=== PATIENT | female | born 1965 ===

== ENCOUNTER 2016-08-12 14:00 | Emergency (ER) | payer OTHER ==
[2016-08-12 14:27] VITALS: TEMP 98.7; BMI 25.4
[2016-08-12] MEDS ORDERED: Sodium Chloride 0.9% 500 ML IV STA (14:49)
--- NOTE | 2016-08-12 15:11 | ED PDOC ---
Arrival/HPI - General Historian: Patient - General Chief Complaint: Eye Problem Time Seen by Provider: 08/12/16 14:23 - History of Present Illness Narrative History of Present Illness (Text): 08/12/16 15:12 51 yo F with h/o DM and HTN, presents with b/l eye irritation, redness and yellow d/c for the past few days. Denies trauma, FB sensation, changes in her vision, and eye pain. Also is c/o 1 month h/o intermittent nonradiating epigastric pain with no other GI symptoms and no exacerbating or alleviating factors, she has not addressed this symptoms yet with her pmd. Otherwise: (-) changes in appetite, (-) urinary symptoms, (-) vomiting, (-) diarrhea, (-) fever , (-) melena, (-) hematochezia. Has no history of prior abdominal surgery. (Bridger GUTIERREZ,Bertha Scott) Past Medical History - Provider Review Nursing Documentation Reviewed: Yes - Infectious Disease Hx of Infectious Diseases: None - Tetanus Immunization Tetanus Immunization: Unknown - Reproductive Menopause: Yes - Cardiac Hx Cardiac Disorders: Yes Hx Hypertension: Yes - Pulmonary Hx Respiratory Disorders: No - Neurological Hx Neurological Disorder: No - HEENT Hx HEENT Disorder: No - Renal Hx Renal Disorder: No - Endocrine/Metabolic Hx Endocrine Disorders: Yes Hx Diabetes Mellitus Type 2: Yes - Hematological/Oncological Hx Blood Disorders: No - Integumentary Hx Dermatological Disorder: No - Musculoskeletal/Rheumatological Hx Musculoskeletal Disorders: No - Gastrointestinal Hx Gastrointestinal Disorders: Yes Other/Comment: abdominal pain - Genitourinary/Gynecological Hx Genitourinary Disorders: No - Psychiatric Hx Psychophysiologic Disorder: No Hx Substance Use: No - Surgical History Hx Section: Yes (x3) Hx Tubal Ligation: Yes Other/Comment: notes from prior visit/triage: breast augmentation - Anesthesia Hx Anesthesia: Yes Hx Anesthesia Reactions: No Hx Malignant Hyperthermia: No - Suicidal Assessment Feels Threatened In Home Enviroment: No Family/Social History - Physician Review Nursing Documentation Reviewed: Yes Family/Social History: No Known Family HX Smoking Status: Never Smoked Hx Alcohol Use: No Hx Substance Use: No Hx Substance Use Treatment: No Allergies/Home Meds Allergies/Adverse Reactions: Allergies No Known Allergies Allergy (Verified 08/12/16 14:14) Home Medications: Home Meds Medication Instructions Recorded Confirmed Glyburide/Metformin HCl [Glyburide 1 tab PO BID 11/11/12 08/12/16 Micronized/Metformin HCl 5 mg-500 M] Enalapril Maleate [Vasotec] 20 mg PO DAILY 03/13/15 08/12/16 Review of Systems - Review of Systems Constitutional: Normal. absent: Fatigue, Weight Change, Fevers Eyes: Normal, Other (eye redness). absent: Vision Changes, Photophobia, Eye Pain ENT: Normal. absent: Hearing Changes, Tinnitus Respiratory: Normal, Cough. absent: SOB, Sputum Cardiovascular: Normal. absent: Chest Pain, Palpitations, Edema Gastrointestinal: Normal, Abdominal Pain. absent: Stool Changes, Appetite Changes Genitourinary Female: Normal. absent: Dysuria, Frequency, Hematuria Musculoskeletal: Normal. absent: Arthralgias, Back Pain, Neck Pain Skin: Normal. absent: Rash, Pruritis, Skin Lesions Physical Exam - Physical Exam Narrative Physical Exam (Text): 08/12/16 15:09 GENERAL APPEARANCE: Patient is awake, alert, oriented x 3, in no acute distress. HEAD: (-) facial swelling and erythema, (-) facial blisters. PUPILS: Pupils equal and reactive. EOM's: Intact. LIDS : (+) mild edema and erythema. CONJUNCTIVAE: (+) mildly injection. SKIN: Warm, dry; (-) cyanosis. EYES: (-) conjunctival pallor, (-) scleral icterus. ENMT: Mucous membranes moist. NECK: (-) tenderness, (-) stiffness, (-) lymphadenopathy. CHEST AND RESPIRATORY: (-) rales, (-) rhonchi, (-) wheezes; breath sounds equal bilaterally. HEART AND CARDIOVASCULAR: (-) irregularity; (-) murmur, (-) gallop. ABDOMEN AND GI: (-) distention. Bowel sounds active; (+) minimal epigastric tenderness, (-) guarding, (-) rebound, (-) palpable masses, (-) CVA tenderness. (-) Singh's. EXTREMITIES: (-) deformity, (-) edema, (+) distal pulses. NEURO AND PSYCH: Mental status as above; (-) focal findings. (Bridger GUTIERREZ, Bertha Scott) Vital Signs Temp Pulse Resp BP Pulse Ox 08/12/16 17:10 82 18 121/88 98 08/12/16 15:00 72 18 119/77 98 08/12/16 14:18 98.7 F 89 19 128/99 H 99 Medical Decision Making ED Course and Treatment: I was available for consultation during PA evaluation. The chart was reviewed by me, and I agree with disposition. The documented history was done by the physician audio visual production specialist. The documented physical exam was done by the physician audio visual production specialist. The documented procedures were done by the physician audio visual production specialist. (Nico Mendenhall) 08/12/16 15:08 51 yo F with h/o DM and HTN, presents with b/l eye irritation, redness and yellow d/c. Also is c/o 1 month h/o intermittent epigastric pain with no other GI symptoms. Based on exam, pt has conjunctivitis and will treat with antibiotic eye drops, to r/o any GB stones, likely dyspepsia. Plan: - Labs - NS IV - Pepcid - UA - Tobramycin eye drops On reevaluation, patient reports improvement of her abdominal pain. Denies any nausea or vomiting at this time. Labs reviewed, glucose is 360. Patient states that she took her oral DM medication today and does not know why her sugar is high. NS bolus ordered and Reg SC insulin 6 units given to the patient. UA results still pending. PA called to the pt's bedside, as per REINFORCING STEEL PLACER, the patient now wants to leave AMA. States that her car is parked outside and needs to move it hence she can not stay in the ER any longer and must leave. She is observed ambulating in the ER in no acute distress. Patient refuses further care, evaluation or treatment in the ER. Patient informed of the reasons for the following and planned treatment, which patient understands, however still refuses. Patient informed of the risk and benefits of treatment. Informed that the risk could include worsening of current conditions, undiagnosed conditions, disability or even . Patient understands the following risk and the benefits of treatment. Patient has the capacity to make decisions and still refuses treatment by RN, PA and ER MD. Patient encouraged to return to the ER at any time and to follow up with pmd. Patient advised to check her fingerstick after 3 hours when she gets home as she was medicated with SC insulin. Bottle of Tobramycin eyedrops provided to the patient and advised to continue to administer 2 gtts to b/l eyes QID x 7 days. Otherwise instructed to f/u with her pmd. (Bridger GUTIERREZ,Bertha Scott) - Lab Interpretations Lab Results: 08/12/16 15:40 08/12/16 15:40 Lab Results 08/12/16 17:15: Urine Color Yellow, Urine Appearance Clear, Urine pH 7.5, Ur Specific [place] 1.015, Urine Protein Negative, Urine Glucose (UA) >=1000, Urine Ketones Negative, Urine Blood Trace-lysed H, Urine Nitrate Negative, Urine Bilirubin Negative, Urine Urobilinogen 0.2, Ur Leukocyte Esterase Trace H , Urine RBC 0 - 2, Urine WBC 0 - 2, Ur Epithelial Cells 4 - 5, Urine Bacteria Trace 08/12/16 15:40: Sodium 138, Potassium 4.3, Chloride 101, Carbon Dioxide 30, Anion Gap 11, BUN 13, Creatinine 0.7, Est GFR ( Amer) > 60, Est GFR (Non- Af Amer) > 60, Random Glucose 360 H*, Calcium 9.4, Total Bilirubin 0.5, AST 18, ALT 24, Alkaline Phosphatase 107, Total Protein 7.2, Albumin 3.9, Globulin 3.3, Albumin/Globulin Ratio 1.2, Lipase 24 08/12/16 15:40: WBC 3.3 L D, RBC 4.00, Hgb 11.6 L, Hct 34.6 L, MCV 86.5, MCH 29.0, MCHC 33.5, RDW 13.1, Plt Count 120, MPV 10.2, Gran % 47.9 L, Lymph % (Auto ) 45.4 H, [place] % (Auto) 6.1 H, Eos % (Auto) 0.3 L, Baso % (Auto) 0.3, Gran # 1.57, Lymph # 1.5, [place] # 0.2, Eos # 0.0, Baso # 0.01 - Medication Orders Current Medication Orders: Sodium Chloride (Sodium Chloride 0.9%) 1,000 mls @ 1,000 mls/hr IV .Q1H DIEGO Last Admin: 08/12/16 15:30 Dose: Not Given Non-Admin Reason: Patient Refused Discontinued Medications Famotidine (Pepcid) 20 mg IVP STAT STA Stop: 08/12/16 14:50 Last Admin: 08/12/16 15:20 Dose: 20 mg Sodium Chloride (Sodium Chloride 0.9%) 500 mls @ 1,000 mls/hr IV .Q30M STA Stop: 08/12/16 15:18 Last Admin: 08/12/16 15:20 Dose: 1,000 mls/hr Insulin Human Regular (Humulin R) 6 units SC STAT STA Stop: 08/12/16 16:52 Last Admin: 08/12/16 17:30 Dose: 6 units Tobramycin Sulfate (Tobrex 0.3% Ophth Soln) 2 drop OU STAT STA Stop: 08/12/16 16:52 Last Admin: 08/12/16 17:30 Dose: 2 drop - PA / PROFESSIONAL NURSING TUTOR / Resident Statement / has reviewed & agrees with the documentation as recorded. Disposition/Present on Arrival - Present on Arrival Any Indicators Present on Arrival: No History of DVT/PE: No History of Uncontrolled Diabetes: No Urinary Catheter: No History of Decub. Ulcer: No History Surgical Site Infection Following: None - Disposition Have Diagnosis and Disposition been Completed?: Yes Disposition Time: 17:32 Patient Plan: Other (AMA) - Disposition Diagnosis: Conjunctivitis, Abdominal pain Disposition: AGAINST MEDICAL ADVICE Patient Problems: Current Active Problems Problem Status Onset Abdominal pain Acute Conjunctivitis Acute Condition: STABLE Discharge Instructions (ExitCare): Acute Abdominal Pain (ED), Against Medical Advice (ED), Conjunctivitis (ED) Print Language: ICELANDIC Referrals: PCP,NO [Primary Care Provider] - Follow up with primary Forms: WORK NOTE
[2016-08-12 16:12] LABS: BASO # 0.01 K/mm3 (0.0-2.0); BASO % 0.3 % (0.0-3.0); EOS % 0.3 % (1.5-5.0); GRAN # 1.57 (1.4-6.5); GRAN % 47.9 % (50.0-68.0); HEMOGLOBIN 11.6 gm/dL (12.0-16.0); LYMPH # 1.5 (1.2-3.4); LYMPH % 45.4 % (22.0-35.0); MEAN CELL VOLUME 86.5 fL (80.0-105.0); MEAN CORPUSCULAR HGB CONC 33.5 g/dl (31.0-37.0); MEAN PLATELET VOLUME 10.2 fl (7.0-11.0); MONO # 0.2 (0.1-0.6); MONO % 6.1 % (1.0-6.0); PLATELET COUNT 120 10^3/uL (120.0-450.0); RED CELL DISTRIBUTION WIDTH 13.1 % (11.5-14.5); WHITE BLOOD COUNT 3.3 10^3/ul (4.5-11.0)
[2016-08-12 16:13] LABS: ALB/GLOB RATIO 1.2 (1.1-1.8); ALBUMIN 3.9 g/dL (3.0-4.8); ALT/SGPT 24 U/L (7-56); AST/SGOT 18 U/L (15-39); BLOOD UREA NITROGEN 13 mg/dL (7-21); CALCIUM 9.4 mg/dL (8.4-10.5); GFR AFRICAN-AMERICAN > 60; GFR NON-AFRICAN AMERICAN > 60; LIPASE 24 U/L (23-300)
[2016-08-12] MEDS ORDERED: Sodium Chloride 0.9% 1,000 ML IV SCH (16:51)
[2016-08-12] MEDS ORDERED: Tobramycin 0.3% OPHT SOLN OU STA (16:51)
[2016-08-12] MEDS ORDERED: Insulin Regular 1 UNITS/0.01 ML ML SC STA (16:51)
[2016-08-12 17:31] LABS: PH,URINE 7.5 (4.7-8.0); URINE BILIRUBIN NEGATIVE (NEGATIVE); URINE BLOOD TRACE-LYSED (NEGATIVE); URINE GLUCOSE (UA) >=1000 mg/dL (NEGATIVE); URINE LEUKOCYTE ESTERASE TRACE Leu/uL (NEGATIVE); URINE NITRATE NEGATIVE (NEGATIVE); URINE PROTEIN NEGATIVE mg/dL (<30 mg/dL); URINE UROBILINOGEN 0.2 E.U./dL (<1 E.U./dL)
[2016-08-12 17:43] LABS: URINE APPEARANCE CLEAR (CLEAR); URINE COLOR YELLOW (YELLOW)
[2016-08-12 17:46] LABS: URINE BACTERIA TRACE (NEG); URINE RBC 0 - 2 /hpf (0-2); URINE WBC 0 - 2 /hpf (0-6)
[2016-08-12 17:53] VITALS: RESP 18; O2SAT 98
[2016-08-12 18:02] VITALS: BP 121/88; PULSE 82
== END 2016-08-12 17:35 | disposition left against medical advice (07) ==
LOC: ED 14:00
DX: H10.9 Unspecified conjunctivitis (principal); R10.9 Unspecified abdominal pain; I10 Essential (primary) hypertension
CPT/HCPCS: 80053; 81001; 83690; 85025; 87086; 96372; 96374; 99284; J7040

== ENCOUNTER 2016-08-21 00:12 | Emergency (ER) | payer OTHER ==
[2016-08-21 00:12] VITALS: BMI 24.0
[2016-08-21 00:37] VITALS: BP 159/94; PULSE 82; RESP 18; TEMP 98.5; O2SAT 97
[2016-08-21] MEDS ORDERED: Tmp-Smz 800 mg-160 mg DS Tab PO STA (01:11)
[2016-08-21] MEDS ORDERED: Amoxicillin-Clav 875-125 mg Tab PO STA (01:12)
[2016-08-21] MEDS ORDERED: TDAP Vaccine 0.5 mL Syr IM ONE (01:14)
--- NOTE | 2016-08-21 01:17 | ED PDOC ---
Arrival/HPI - General Historian: Patient - History of Present Illness Time/Duration: Other (4 days) Context: Home <Gaby Park - Last Filed: 08/21/16 01:14> <Cole Hull - Last Filed: 08/21/16 01:35> - General Chief Complaint: Medical Clearance Time Seen by Provider: 08/21/16 00:51 - History of Present Illness Narrative History of Present Illness (Text): 08/21/16 01:14 This 51 yo female with pmh DM, HTN, presents to this ED c/o left dorsal foot cellulitis x 4 days. Patient stated she got a small scraped on her left foot with hers shoes. Patient notice left foot has gradually getting swelling and redness. Last tetanus is UKN. Denies fever, or chills. Patient admits taking Keflex for 4 days due to UTI. (Gaby Park) Past Medical History - Provider Review Nursing Documentation Reviewed: Yes - Infectious Disease Hx of Infectious Diseases: None - Tetanus Immunization Tetanus Immunization: Unknown - Reproductive Menopause: Yes - Cardiac Hx Cardiac Disorders: Yes Hx Hypertension: Yes - Pulmonary Hx Respiratory Disorders: No - Neurological Hx Neurological Disorder: No - HEENT Hx HEENT Disorder: No - Renal Hx Renal Disorder: No - Endocrine/Metabolic Hx Endocrine Disorders: Yes Hx Diabetes Mellitus Type 2: Yes - Hematological/Oncological Hx Blood Disorders: No - Integumentary Hx Dermatological Disorder: No - Musculoskeletal/Rheumatological Hx Musculoskeletal Disorders: No - Gastrointestinal Hx Gastrointestinal Disorders: No Other/Comment: abdominal pain - Genitourinary/Gynecological Hx Genitourinary Disorders: No - Psychiatric Hx Psychophysiologic Disorder: No Hx Substance Use: No - Surgical History Hx Section: Yes (x3) Hx Tubal Ligation: Yes Other/Comment: notes from prior visit/triage: breast augmentation - Anesthesia Hx Anesthesia: Yes Hx Anesthesia Reactions: No Hx Malignant Hyperthermia: No - Suicidal Assessment Feels Threatened In Home Enviroment: No <Gaby Park - Last Filed: 08/21/16 01:14> Family/Social History - Physician Review Nursing Documentation Reviewed: Yes Family/Social History: No Known Family HX Smoking Status: Never Smoked Hx Alcohol Use: No Hx Substance Use: No Hx Substance Use Treatment: No <Gaby Park - Last Filed: 08/21/16 01:14> Allergies/Home Meds <Gaby Park - Last Filed: 08/21/16 01:14> <Cole Hull - Last Filed: 08/21/16 01:35> Allergies/Adverse Reactions: Allergies No Known Allergies Allergy (Verified 08/21/16 00:37) Home Medications: Home Meds Medication Instructions Recorded Confirmed Glyburide/Metformin HCl [Glyburide 1 tab PO BID 11/11/12 08/21/16 Micronized/Metformin HCl 5 mg-500 M] Enalapril Maleate [Vasotec] 20 mg PO DAILY 03/13/15 08/21/16 Cephalexin [cephalexin] 500 mg PO BID 08/21/16 08/21/16 Review of Systems - Review of Systems Constitutional: Normal. absent: Fatigue, Weight Change, Fevers Eyes: Normal ENT: Normal Respiratory: Normal Cardiovascular: Normal Gastrointestinal: Normal Genitourinary Female: Normal Musculoskeletal: Normal Skin: Ulcer, Cellulitis Neurological: Normal Endocrine: Normal Hemo/Lymphatic: Normal Psychiatric: Normal <Gaby Park - Last Filed: 08/21/16 01:14> Physical Exam Temperature: Afebrile Blood Pressure: Normal Pulse: Regular Respiratory Rate: Normal Appearance: Positive for: Well-Appearing, Non-Toxic, Comfortable Pain Distress: None Mental Status: Positive for: Alert and Oriented X 3 - Systems Exam Head: Present: Atraumatic, Normocephalic Pupils: Present: PERRL Extroacular Muscles: Present: EOMI Conjunctiva: Present: Normal Mouth: Present: Moist Mucous Membranes Neck: Present: Normal Range of Motion Respiratory/Chest: Present: Clear to Auscultation, Good Air Exchange. No: Respiratory Distress, Accessory Muscle Use Cardiovascular: Present: Regular Rate and Rhythm, Normal S1, S2. No: Murmurs Abdomen: Present: Normal Bowel Sounds. No: Tenderness, Distention, Peritoneal Signs Back: Present: Normal Inspection. No: CVA Tenderness Upper Extremity: Present: Normal Inspection, Normal ROM, NORMAL PULSES, Neurovascularly Intact, Capillary Refill < 2s. No: Cyanosis, Edema Lower Extremity: Present: NORMAL PULSES, Normal ROM, Swelling, Erythema (mild left dorsal foot swelling with mild erythema. Ther is a 4 mm abrasion in the center of cellulitis. No comparment syndrome. Pedis puls are normal b/l). No : Edema, CALF TENDERNESS Neurological: Present: GCS=15, CN II-XII Intact, Speech Normal Skin: Present: Warm, Dry, Normal Color. No: Rashes Psychiatric: Present: Alert, Oriented x 3, Normal Insight, Normal Concentration <Gaby Park - Last Filed: 08/21/16 01:14> Medical Decision Making Re-evaluation Time: 01:25 Reassessment Condition: Re-examined, Unchanged <Gaby Park - Last Filed: 08/21/16 01:14> <Cole Hull - Last Filed: 08/21/16 01:35> ED Course and Treatment: 08/21/16 01:21 Patient with pmh DM, came with an ulcer like lesion dorsal mid foot with surrounding cellulitis. Patient has failed out patient abx, Keflex. Patient was recommended to be admitted for cellulitis, foot ulcer in diabetic pt. Patient stated she can not stay tonight since she has many things to do today. She agrees to sign AMA, and she understands risk of severe infection which it could lead to foot amputation, sepsis, , permanent disability, chronic suffering. She stated if infection worsen she will return immediately. Patient also refused lab, or IV insertion Leaving Against Medical Advice (AMA): This patient is choosing to leave against medical advice. The EP has personally explained to the pt that choosing to do so may result in permanent bodily harm or . The EP discussed at great length that without further evaluation and monitoring there may be unforeseen circumstances and/or deterioration causing permanent bodily harm or as a result of their choice. The pt verbalized these risks back to the physician in laymans terms. The pt is alert, oriented, and shows the mental capacity to make clear decisions regarding the pts health care at this time. The pt continues to wish to leave against medical advice. In light of the pts decision to leave AMA, follow-up has been recommended and the pt is aware of the importance of following up as instructed. The pt has been advised that they should return to the ED immediately if they change their mind at any time, or if this condition begins to change or worsen in any way. (Gaby Park) - Medication Orders Current Medication Orders: Discontinued Medications Amoxicillin/Clavulanate Potassium (Augmentin 875 Mg-125 Mg Tab) 1 tab PO STAT STA PRN Reason: Protocol Stop: 08/21/16 01:13 Mupirocin (Bactroban Ointment) 1 gm TOP STAT STA Stop: 08/21/16 01:13 Tetanus/Reduced Diphtheria/Acell Pertussis (Boostrix Vaccine Inj) 0.5 ml IM .ONCE ONE Stop: 08/21/16 01:15 Trimethoprim/Sulfamethoxazole (Bactrim Ds Tab) 1 tab PO STAT STA PRN Reason: Protocol Stop: 08/21/16 01:12 - PA / PUTAWAY DRIVER / Resident Statement SAM has reviewed & agrees with the documentation as recorded. / has examined the patient and agrees with the treatment plan. <Cole Hull - Last Filed: 08/21/16 01:35> Disposition/Present on Arrival - Present on Arrival Any Indicators Present on Arrival: No History of DVT/PE: No History of Uncontrolled Diabetes: No Urinary Catheter: No History of Decub. Ulcer: No History Surgical Site Infection Following: None - Disposition Have Diagnosis and Disposition been Completed?: Yes Disposition Time: 01:27 <Gaby Park - Last Filed: 08/21/16 01:14> <Cole Hull - Last Filed: 08/21/16 01:35> - Disposition Diagnosis: Cellulitis of foot, Foot ulcer due to secondary DM Disposition: AGAINST MEDICAL ADVICE Condition: UNKNOWN Discharge Instructions (ExitCare): Cellulitis (ED) Additional Instructions: Return to emergency if infection worsen. Clean wound daily with soap and water and apply ointment. Take medication as instructed. call tire installer for revaluation. Prescriptions: Amoxicillin/Clavulanate [Augmentin 875 MG-125 MG] 1 tab PO BID #14 tab Sulfamethoxazole/Trimethoprim [Bactrim DS 800 mg-160 mg] 1 tab PO BID #14 tab Referrals: Mina Marion DPM [Staff Provider] - Follow up with primary
== END 2016-08-21 02:20 | disposition left against medical advice (07) ==
LOC: ED 00:12
DX: L03.116 Cellulitis of left lower limb (principal); E11.622 Type 2 diabetes mellitus with other skin ulcer; L97.529 Non-pressure chronic ulcer of other part of left foot with unspecified severity; I10 Essential (primary) hypertension; Z23 Encounter for immunization

== ENCOUNTER 2016-08-23 22:38 | Observation (INO) | payer OTHER ==
[2016-08-23 23:58] LABS: EOS % 0.5 % (1.5-5.0); GRAN # 1.82 (1.4-6.5); GRAN % 49.5 % (50.0-68.0); HEMOGLOBIN 11.9 gm/dL (12.0-16.0); LYMPH # 1.6 (1.2-3.4); LYMPH % 43.2 % (22.0-35.0); MEAN CELL VOLUME 85.1 fL (80.0-105.0); MEAN CORPUSCULAR HEMOGLOBIN 29.5 pg (25.0-35.0); MEAN CORPUSCULAR HGB CONC 34.7 g/dl (31.0-37.0); MEAN PLATELET VOLUME 10.1 fl (7.0-11.0); MONO # 0.3 (0.1-0.6); MONO % 6.8 % (1.0-6.0); PLATELET COUNT 180 10^3/uL (120.0-450.0); RBC 4.03 10^6/uL (3.5-6.1); RED CELL DISTRIBUTION WIDTH 13.4 % (11.5-14.5); WHITE BLOOD COUNT 3.7 10^3/ul (4.5-11.0)
[2016-08-24 00:08] LABS: ALB/GLOB RATIO 1.1 (1.1-1.8); ALBUMIN 3.9 g/dL (3.0-4.8); ALT/SGPT 23 U/L (7-56); AST/SGOT 21 U/L (15-39); BLOOD UREA NITROGEN 18 mg/dL (7-21); GFR AFRICAN-AMERICAN > 60; GFR NON-AFRICAN AMERICAN > 60
--- NOTE | 2016-08-24 00:34 | ED PDOC ---
Arrival/HPI - General Historian: Patient - History of Present Illness Symptom Onset: Gradual Symptom Course: Worsening Quality: Aching, Throbbing Severity Level: 5 - General Chief Complaint: Lower Extremity Problem/Injury Time Seen by Provider: 08/23/16 22:41 - History of Present Illness Narrative History of Present Illness (Text): 08/24/16 00:31 51yr old diabetic female presents today with non healing wound to left foot with surrounding erythema and edema. pt was seen in ER 2 days ago and signed out AMA. pt presents today for admission for foot infection/cellulitis left foot. pt denies fever/chills. c/o severe pain and swelling to left foot. pt states about 6 days ago she scraped her foot with new sandals and since has developed pain and swelling and erythema. pt was on Kelfex for UTI. pt then signed out AMA and started augmentin and bactrim PO. pt still with continued pain, swelling and erythema. (More Ascencio) Past Medical History - Provider Review Nursing Documentation Reviewed: Yes - Travel History Have you recently traveled outside [place] w/in the past 3 mons?: No - Infectious Disease Hx of Infectious Diseases: None - Tetanus Immunization Tetanus Immunization: Unknown - Reproductive Menopause: Yes ("almost 2years ago") - Cardiac Hx Cardiac Disorders: Yes Hx Hypertension: Yes - Pulmonary Hx Respiratory Disorders: No - Neurological Hx Neurological Disorder: No - HEENT Hx HEENT Disorder: No - Renal Hx Renal Disorder: No - Endocrine/Metabolic Hx Endocrine Disorders: Yes Hx Diabetes Mellitus Type 2: Yes - Hematological/Oncological Hx Blood Disorders: No - Integumentary Hx Dermatological Disorder: No - Musculoskeletal/Rheumatological Hx Musculoskeletal Disorders: No - Gastrointestinal Hx Gastrointestinal Disorders: No Other/Comment: abdominal pain - Genitourinary/Gynecological Hx Genitourinary Disorders: No - Psychiatric Hx Psychophysiologic Disorder: No Hx Substance Use: No - Surgical History Hx Section: Yes (x3) Hx Tubal Ligation: Yes Other/Comment: notes from prior visit/triage: breast reduction. - Anesthesia Hx Anesthesia: Yes Hx Anesthesia Reactions: No Hx Malignant Hyperthermia: No - Suicidal Assessment Feels Threatened In Home Enviroment: No Family/Social History - Physician Review Nursing Documentation Reviewed: Yes Family/Social History: Unknown Family HX Smoking Status: Never Smoked Hx Alcohol Use: No Hx Substance Use: No Hx Substance Use Treatment: No Allergies/Home Meds Allergies/Adverse Reactions: Allergies No Known Allergies Allergy (Verified 08/21/16 00:37) Home Medications: Home Meds Medication Instructions Recorded Confirmed Glyburide/Metformin HCl [Glyburide 1 tab PO BID 11/11/12 08/23/16 Micronized/Metformin HCl 5 mg-500 M] Enalapril Maleate [Vasotec] 20 mg PO DAILY 03/13/15 08/23/16 Review of Systems - Review of Systems Constitutional: absent: Fatigue, Fevers Respiratory: absent: SOB, Cough Cardiovascular: absent: Chest Pain, Palpitations Gastrointestinal: absent: Abdominal Pain, Nausea, Vomiting Musculoskeletal: Arthralgias Skin: Rash, Cellulitis Neurological: absent: Headache, Dizziness Psychiatric: absent: Anxiety, Depression Physical Exam Vital Signs Reviewed: Yes Temperature: Afebrile Blood Pressure: Normal Pulse: Regular Respiratory Rate: Normal Appearance: Positive for: Well-Appearing, Non-Toxic, Comfortable Pain Distress: None Mental Status: Positive for: Alert and Oriented X 3 - Systems Exam Head: Present: Atraumatic Mouth: Present: Moist Mucous Membranes Respiratory/Chest: Present: Clear to Auscultation Cardiovascular: Present: Regular Rate and Rhythm Lower Extremity: Present: NORMAL PULSES, Normal ROM, Tenderness (left foot there is a 1cm laceration to dorsal foot with surrounding erythema + edema to entire dorsal foot with tenderness. no calf tenderness. no calf swelling. ), Swelling, Erythema, Neurovascularly Intact, Capillary Refill < 2 s. No: CALF TENDERNESS Skin: Present: Warm, Dry Psychiatric: Present: Alert, Oriented x 3 Vital Signs Temp Pulse Resp BP Pulse Ox 08/23/16 22:42 98.4 F 85 17 124/81 96 Medical Decision Making ED Course and Treatment: I was available for consultation during PA evaluation. The chart was reviewed by me, and I agree with disposition. The documented history was done by the physician forest engineer. The documented physical exam was done by the physician forest engineer. The documented procedures were done by the physician forest engineer. (Nico Mendenhall) 08/24/16 00:35 51yr old female with left foot cellulitis. failure of outpatient abx. cbc: wnl cmp: glucose:255 xray left foot; no fracture, no fb blood cultures pending. vancomycin IV. case discussed with dr. watt accepts admission for cellulitis of foot in diabetic with failure of outpatient abx. consult ID and podiatry impression; cellulitis, foot admit to med/surg. (More Ascencio) - Lab Interpretations Lab Results: 08/23/16 23:45 08/23/16 23:45 Lab Results 08/23/16 23:45: WBC 3.7 L, RBC 4.03, Hgb 11.9 L, Hct 34.3 L, MCV 85.1, MCH 29.5 , MCHC 34.7, RDW 13.4, Plt Count 180, MPV 10.1, Gran % 49.5 L, Lymph % (Auto) 43.2 H, [place] % (Auto) 6.8 H, Eos % (Auto) 0.5 L, Baso % (Auto) 0.0, Gran # 1.82 , Lymph # 1.6, [place] # 0.3, Eos # 0.0, Baso # 0.00 08/23/16 23:45: Sodium 137, Potassium 3.9, Chloride 100, Carbon Dioxide 27, Anion Gap 14, BUN 18, Creatinine 0.9, Est GFR ( Amer) > 60, Est GFR (Non- Af Amer) > 60, Random Glucose 255 H, Calcium 9.0, Total Bilirubin 0.5, AST 21, ALT 23, Alkaline Phosphatase 89, Total Protein 7.4, Albumin 3.9, Globulin 3.6, Albumin/Globulin Ratio 1.1 - RAD Interpretation Radiology Orders: 08/23/16 23:28 FOOT LEFT 3 VIEWS ROUTINE [RAD] Stat - Medication Orders Current Medication Orders: Vancomycin HCl (Vancomycin 1gm) 1 gm in 250 mls @ 167 mls/hr IVPB STAT STA PRN Reason: Protocol Stop: 08/24/16 02:06 Disposition/Present on Arrival - Present on Arrival Any Indicators Present on Arrival: No History of DVT/PE: No History of Uncontrolled Diabetes: No Urinary Catheter: No History of Decub. Ulcer: No History Surgical Site Infection Following: None - Disposition Have Diagnosis and Disposition been Completed?: Yes Disposition Time: 00:34 Patient Plan: Admission - Disposition Diagnosis: Cellulitis Disposition: HOSPITALIZED Patient Problems: Current Active Problems Problem Status Onset Cellulitis Acute Condition: FAIR
[2016-08-24] MEDS ORDERED: Vancomycin 1gm in NS 250ml 1 GM/250 ML BAG IVPB STA (00:37)
--- NOTE | 2016-08-24 09:41 | RAD ---
PROCEDURE: Left Foot Radiographs. HISTORY: foot swelling/cellulitis COMPARISON: None. FINDINGS: BONES: Current study reveals no evidence of acute displaced fracture nor dislocation. The osseous appear intact. No obvious cortical destructive changes. JOINTS: Mild DJD 1st MTP joint. SOFT TISSUES: There appears to be mild diffuse nonspecific soft tissue swelling most conspicuous dorsally the level of the metatarsal heads. . Rule out cellulitis ; rule out vascular etiology. Clinical correlation recommended. Note also made of minor vascular calcifications. OTHER FINDINGS: None. IMPRESSION: No evidence of acute displaced fracture nor dislocation. No cortical destructive changes. Mild diffuse soft tissue swelling could represent cellulitis however rule out vascular etiologies consider followup bulla MRI of the foot if necessary.
[2016-08-24] MEDS ORDERED: Vancomycin 1gm in NS 250ml 1 GM/250 ML BAG IVPB SCH (10:00)
[2016-08-24] MEDS: Linezolid 600 mg in D5W 300 ml 600 MG/300 ML BAG IVPB SCH ×2 (11:13→22:16)
[2016-08-24] MEDS: Insulin Lispro (humaLOG) MEDIUM Coverage SC SCH ×4 (11:18→22:00)
[2016-08-24 12:30] VITALS: BMI 25.4
--- NOTE | 2016-08-24 12:38 | CP.PCM.CON ---
History of Present Illness - History of Present Illness History of Present Illness: 51 year old female with PMH of DM, HTN, S/P , S/P tubal ligation, S/P breast reduction surgery came in to [facility] complaining of left foot dorsal pain associated with swelling and a wound. She was in the ED 2 days ago and she was given Augmentin and Bactrim but the patient states that it is still painful and swollen. This morning the patient states that the swelling is improved as well as the pain. She denies animal contacts or insect bites, no swimming, no soaking of feet in water, no trips to wooded areas, no fever or chills, no nausea or vomiting, no chest pain, no SOB, no headache or dizziness, no diarrhea, no dysuria. She developed itching with Vancomycin. Infectious diseases consult is requested to further evaluate and manage. Review of Systems - Review of Systems All systems: reviewed and no additional remarkable complaints except (as per HPI ) Past Patient History - Infectious Disease Hx of Infectious Diseases: None - Tetanus Immunizations Tetanus Immunization: Unknown - Past Social History Smoking Status: Never Smoked - CARDIAC Hx Cardiac Disorders: Yes Hx Hypertension: Yes - PULMONARY Hx Respiratory Disorders: No - NEUROLOGICAL Hx Neurological Disorder: No - HEENT Hx HEENT Problems: No - RENAL Hx Chronic Kidney Disease: No - ENDOCRINE/METABOLIC Hx Endocrine Disorders: Yes Hx Diabetes Mellitus Type 2: Yes - HEMATOLOGICAL/ONCOLOGICAL Hx Blood Disorders: No - INTEGUMENTARY Hx Dermatological Problems: No - MUSCULOSKELETAL/RHEUMATOLOGICAL Hx Musculoskeletal Disorders: No Hx Falls: Yes - GASTROINTESTINAL Hx Gastrointestinal Disorders: No Other/Comment: abdominal pain - GENITOURINARY/GYNECOLOGICAL Hx Genitourinary Disorders: No - PSYCHIATRIC Hx Psychophysiologic Disorder: No - SURGICAL HISTORY Other/Comment: notes from prior visit/triage: breast reduction. - ANESTHESIA Hx Anesthesia: Yes Hx Anesthesia Reactions: No Hx Malignant Hyperthermia: No Meds Allergies/Adverse Reactions: Allergies Allergy/AdvReac Type Severity Reaction Status Date / Time No Known Allergies Allergy Verified 08/21/16 00:37 Physical Exam - Constitutional Appears: Non-toxic, No Acute Distress - Head Exam Head Exam: NORMAL INSPECTION - Neck Exam Neck exam: Negative for: Meningismus - Respiratory Exam Respiratory Exam: Decreased Breath Sounds - Cardiovascular Exam Cardiovascular Exam: +S1, +S2 - GI/Abdominal Exam GI & Abdominal Exam: Soft. absent: Tenderness Results - Vital Signs Recent Vital Signs: Last Vital Signs Temp 97.8 F 08/24/16 02:57 Pulse 82 08/24/16 02:57 Resp 20 08/24/16 02:57 BP 172/95 H 08/24/16 02:57 Pulse Ox 96 08/23/16 22:42 - Labs Result Diagrams: 08/23/16 23:45 08/23/16 23:45 Labs: Laboratory Results - last 24 hr 08/24/16 02:54 POC Glucose (mg/dL) 221 H Assessment & Plan - Assessment and Plan (Free Text) Plan: Assessment Consider left dorsum of the foot skin and skin structure infection DM HTN S/P S/P tubal ligation S/P breast reduction surgery Plan started the patient on Zyvox and will monitor clinical response; follow up blood and wound cx
--- NOTE | 2016-08-25 04:07 | HP ---
HISTORY OF PRESENT ILLNESS: The patient is 51-year-old female. The patient states she bought a new shoes and that was probably misfit and she developed sore on the dorsum of her left foot because of her rubbing of laces on that area. The patient states she came to the emergency room two days ago. She was advised get admitted and get antibiotic, but she signed against medical advice. She presented again with redness, pain, and swelling to that area, so she is being admitted for IV antibiotics. Denies any fevers. No chills, no nausea or vomiting, no diarrhea. PAST MEDICAL HISTORY: Significant for: 1. Non-insulin dependent diabetes. 2. Hypertension. 3. History of tubal ligation. 4. Status post breast reduction. MEDICATIONS: The patient states when she came to ER two days ago, she was given Augmentin with no significant relief. ALLERGIES: SHE IS NOT ALLERGIC TO ANY MEDICATIONS. MEDICATIONS AT HOME: She is on Bactrim and Augmentin, Glucovance 5/500 mg twice a day, and lisinopril 20 mg daily. SOCIAL HISTORY: She is . Denies smoking, drinking, or alcohol use. REVIEW OF SYSTEMS: Significant for left foot discomfort. PHYSICAL EXAMINATION: GENERAL: The patient is awake and alert and communicative. VITAL SIGNS: She is afebrile. Pulse 82, respirations 20, blood pressure 124/76. LUNGS: Bilateral clear air flow. No rhonchi or crackles. HEART: S1 and S2 audible. ABDOMEN: Soft, nontender. No rebound and no guarding. NEUROLOGIC: The patient is awake and alert, communicative, and ambulatory. Left foot dorsum, she has edema with central eschar and scab. LABORATORY DATA: WBC 3.7, hemoglobin 11.9, hematocrit 34.3, platelet 180,000. Chemistry: Sodium 137, potassium 3.9, chloride 100, CO2 is 27, BUN 18, creatinine 0.9, blood sugar 221. X-ray of the foot is unremarkable. ASSESSMENT: 1. Left foot cellulitis. 2. Insulin-dependent diabetes. 3. Hypertension. 4. Hyperlipidemia. PLAN: The patient has been started on Zyvox and apply Bactroban to the area and we will reevaluate the patient in a.m. Currently, monitor her blood sugar and ID input noted and appreciated. We will follow the patient. Maribel Segundo MD [facility] # [id number]
[2016-08-25] MEDS: Insulin Lispro (humaLOG) MEDIUM Coverage SC SCH ×4 (07:43→21:57)
[2016-08-25] MEDS: Linezolid 600 mg in D5W 300 ml 600 MG/300 ML BAG IVPB SCH ×2 (10:39→21:58)
--- NOTE | 2016-08-25 15:53 | CP.PCM.CON ---
<Aimee López - Last Filed: 08/26/16 06:29> History of Present Illness - History of Present Illness History of Present Illness: 51 y/o female with PMH of DM and HTN seen at bedside for left lower extremity cellulitis and open wound. Pt states that she was wearing tight strapped shoes a few days ago and after she took them off she noticed a break in the skin. Pt states that the foot became red and swollen and she decided to come in to the hospital. Pt states that since she has arrived she has been on IV abx and the redness and swollen have gone down significantly. Pt denies any prior issues with her feet in the past. Pt denies any F/C/N/V/SOB. PSH: tubal ligation, C section, breast reduction All: NKDA Social: denies EtOH, denies cigarette use, denies drug use Review of Systems - Review of Systems All systems: reviewed and no additional remarkable complaints except (per HPI) Past Patient History - Infectious Disease Hx of Infectious Diseases: None - Tetanus Immunizations Tetanus Immunization: Unknown - Past Social History Smoking Status: Never Smoked - CARDIAC Hx Cardiac Disorders: Yes Hx Hypertension: Yes - PULMONARY Hx Respiratory Disorders: No - NEUROLOGICAL Hx Neurological Disorder: No - HEENT Hx HEENT Problems: No - RENAL Hx Chronic Kidney Disease: No - ENDOCRINE/METABOLIC Hx Endocrine Disorders: Yes Hx Diabetes Mellitus Type 2: Yes - HEMATOLOGICAL/ONCOLOGICAL Hx Blood Disorders: No - INTEGUMENTARY Hx Dermatological Problems: No - MUSCULOSKELETAL/RHEUMATOLOGICAL Hx Musculoskeletal Disorders: No Hx Falls: Yes - GASTROINTESTINAL Hx Gastrointestinal Disorders: No Other/Comment: abdominal pain - GENITOURINARY/GYNECOLOGICAL Hx Genitourinary Disorders: No - PSYCHIATRIC Hx Psychophysiologic Disorder: No - SURGICAL HISTORY Other/Comment: notes from prior visit/triage: breast reduction. - ANESTHESIA Hx Anesthesia: Yes Hx Anesthesia Reactions: No Hx Malignant Hyperthermia: No Meds Allergies/Adverse Reactions: Allergies Allergy/AdvReac Type Severity Reaction Status Date / Time No Known Allergies Allergy Verified 08/21/16 00:37 - Medications Medications: Current Medications Acetaminophen (Tylenol 325mg Tab) 650 mg PO Q6H PRN PRN Reason: Fever >100.4 F Glyburide (Micronase) 5 mg PO 0800,1700 [facility] Last Admin: 08/25/16 07:43 Dose: 5 mg Linezolid (Zyvox 600mg/300ml D5w) 600 mg in 300 mls @ 200 mls/hr IVPB Q12 [facility] PRN Reason: Protocol Stop: 08/31/16 10:01 Last Admin: 08/25/16 10:39 Dose: 200 mls/hr Insulin Human Lispro (Humalog Med) 0 units SC ACHS [facility] PRN Reason: Protocol Last Admin: 08/25/16 12:46 Dose: 5 units Lisinopril (Zestril) 20 mg PO DAILY [facility] Last Admin: 08/25/16 10:38 Dose: 20 mg Metformin HCl (Glucophage) 500 mg PO BIDWM [facility] Last Admin: 08/25/16 07:43 Dose: 500 mg Mupirocin (Bactroban Ointment) 0 gm TOP BID [facility] Physical Exam - Constitutional Appears: Well, Non-toxic, No Acute Distress - Extremities Exam Additional comments: Lower extremity focused examination Vasc: DP/PT 2/4 B/L. Temperature gradient warm to cool from proximal to distal. CFT < 3 sec to all digits. No pedal edema. Derm: 0.4cmx0.4cm circular lesion noted to dorsum of L foot with 1cm circular peripheral mild erythema. No malodor, no purulence, no drainage, no clinical signs of infection. Neuro: Protective sensation grossly intact Ortho: No tenderness to palpation of skin lesion or dorsum or left foot - Neurological Exam Neurological exam: Alert, Oriented x3 - Psychiatric Exam Psychiatric exam: Normal Affect, Normal Mood Results - Vital Signs Recent Vital Signs: Last Vital Signs Temp 97.7 F 08/25/16 07:38 Pulse 73 08/25/16 07:38 Resp 20 08/25/16 07:38 BP 136/88 08/25/16 10:38 Pulse Ox 95 08/25/16 07:38 - Labs Result Diagrams: 08/23/16 23:45 08/23/16 23:45 Assessment & Plan - Assessment and Plan (Free Text) Assessment: 51 y/o female with left foot cellulitis and skin break secondary to shoegear irritation Plan: Pt seen and evaluated at bedside Discussed plan in detail with attending Dr. Astorga Chart, labs and vitals reviewed- afebrile, WBC 3.7 Rx Bactroban to be applied to dorsum of L foot in area of skin break Podiatry will continue to follow while in house Thank you for this consult <Zofia Astorga - Last Filed: 08/26/16 19:47> Results - Vital Signs Recent Vital Signs: Last Vital Signs Temp 98.4 F 08/26/16 07:37 Pulse 70 08/26/16 09:00 Resp 20 08/26/16 07:37 BP 133/80 08/26/16 09:00 Pulse Ox 97 08/26/16 07:37 - Labs Result Diagrams: 08/23/16 23:45 08/23/16 23:45 Attending/Attestation - Attestation I have personally seen and examined this patient.: Yes I have fully participated in the care of the patient.: Yes I have reviewed all pertinent clinical information: Yes
--- NOTE | 2016-08-25 16:04 | CP.PCM.PN ---
Subjective - Date & Time of Evaluation Date of Evaluation: 08/25/16 Time of Evaluation: 11:45 - Subjective Subjective: Comfortable in bed, not in distress, less pain in the left foot, no fevers overnight. Objective - Vital Signs/Intake and Output Vital Signs (last 24 hours): Temp Pulse Resp BP Pulse Ox 97.7 F 73 20 136/88 95 08/25/16 07:38 08/25/16 07:38 08/25/16 07:38 08/25/16 07:38 08/25/16 07:38 Intake and Output: 08/25/16 08/25/16 06:59 18:59 Intake Total 1200 Balance 1200 - Medications Medications: Current Medications Acetaminophen (Tylenol 325mg Tab) 650 mg PO Q6H PRN PRN Reason: Fever >100.4 F Glyburide (Micronase) 5 mg PO 0800,1700 [facility] Last Admin: 08/25/16 07:43 Dose: 5 mg Linezolid (Zyvox 600mg/300ml D5w) 600 mg in 300 mls @ 200 mls/hr IVPB Q12 [facility] PRN Reason: Protocol Stop: 08/31/16 10:01 Last Admin: 08/24/16 22:16 Dose: 200 mls/hr Insulin Human Lispro (Humalog Med) 0 units SC ACHS [facility] PRN Reason: Protocol Last Admin: 08/25/16 07:43 Dose: 3 units Lisinopril (Zestril) 20 mg PO DAILY [facility] Last Admin: 08/24/16 11:27 Dose: 20 mg Metformin HCl (Glucophage) 500 mg PO BIDWM [facility] Last Admin: 08/25/16 07:43 Dose: 500 mg - Constitutional Appears: Non-toxic, No Acute Distress - Head Exam Head Exam: NORMAL INSPECTION - ENT Exam ENT Exam: Mucous Membranes Moist - Neck Exam Neck Exam: absent: Meningismus - Respiratory Exam Respiratory Exam: Decreased Breath Sounds - Cardiovascular Exam Cardiovascular Exam: +S1, +S2 - GI/Abdominal Exam GI & Abdominal Exam: Soft. absent: Tenderness - Extremities Exam Additional comments: left foot with decreased swelling and tenderness Assessment and Plan - Assessment and Plan (Free Text) Plan: Assessment Consider left dorsum of the foot skin and skin structure infection, slowly improving DM HTN S/P S/P tubal ligation S/P breast reduction surgery Plan continue Zyvox day 2 - will recommend 7 days of therapy
--- NOTE | 2016-08-26 03:32 | PN ---
SUBJECTIVE: The patient is a 51-year-old, seen and examined, doing much better. She states, her foot pain has significantly improved. PHYSICAL EXAMINATION VITAL SIGNS: She is afebrile. Pulse 76, respirations 18, blood pressure 137/88. HEART: S1, S2 audible. LUNGS: Bilateral good air flow. No rhonchi or crackle. ABDOMEN: Soft, nontender. No rebound, no guarding. EXTREMITIES: Left foot erythema has significantly improved, but still has erythema in the middle of the dorsum of the left foot. NEUROLOGIC: The patient is awake and alert, communicative, ambulatory. LABORATORY DATA: There is no new lab available today. ASSESSMENT: 1. Left foot cellulitis. 2. Noninsulin-dependent diabetes. 3. Hypertension. 4. Hyperlipidemia. PLAN: We will continue the patient on current medications. Discussed with ID. We will give another day of IV antibiotic and we will switch to p.o. Zyvox tomorrow and send her home. Maribel Segundo MD
[2016-08-26 07:38] VITALS: BP 133/80; PULSE 70; RESP 20; TEMP 98.4; O2SAT 97
[2016-08-26] MEDS: Insulin Lispro (humaLOG) MEDIUM Coverage SC SCH ×2 (07:59→12:15)
[2016-08-26] MEDS: Linezolid 600 mg in D5W 300 ml 600 MG/300 ML BAG IVPB SCH (09:00)
--- NOTE | 2016-08-26 14:38 | CP.PCM.PN ---
Subjective - Date & Time of Evaluation Date of Evaluation: 08/26/16 Time of Evaluation: 11:35 - Subjective Subjective: Feeing much better, no fevers overnight, left foot feels better, with decreased pain and swelling. Objective - Vital Signs/Intake and Output Vital Signs (last 24 hours): Temp Pulse Resp BP Pulse Ox 98.4 F 70 20 133/80 97 08/26/16 07:37 08/26/16 09:00 08/26/16 07:37 08/26/16 09:00 08/26/16 07:37 - Medications Medications: Current Medications Acetaminophen (Tylenol 325mg Tab) 650 mg PO Q6H PRN PRN Reason: Fever >100.4 F Glyburide (Micronase) 5 mg PO 0800,1700 [facility] Last Admin: 08/26/16 07:59 Dose: 5 mg Linezolid (Zyvox 600mg/300ml D5w) 600 mg in 300 mls @ 200 mls/hr IVPB Q12 [facility] PRN Reason: Protocol Stop: 08/31/16 10:01 Last Admin: 08/26/16 09:00 Dose: 200 mls/hr Insulin Human Lispro (Humalog Med) 0 units SC ACHS [facility] PRN Reason: Protocol Last Admin: 08/26/16 07:59 Dose: 3 units Lisinopril (Zestril) 20 mg PO DAILY [facility] Last Admin: 08/26/16 09:00 Dose: 20 mg Metformin HCl (Glucophage) 500 mg PO BIDWM [facility] Last Admin: 08/26/16 07:59 Dose: 500 mg Mupirocin (Bactroban Ointment) 0 gm TOP BID [facility] Last Admin: 08/26/16 09:00 Dose: 1 applic - Constitutional Appears: Non-toxic, No Acute Distress - Head Exam Head Exam: NORMAL INSPECTION - ENT Exam ENT Exam: Mucous Membranes Moist - Neck Exam Neck Exam: absent: Lymphadenopathy, Meningismus - Respiratory Exam Respiratory Exam: Decreased Breath Sounds - Cardiovascular Exam Cardiovascular Exam: +S1, +S2 - GI/Abdominal Exam GI & Abdominal Exam: Soft. absent: Tenderness - Extremities Exam Additional comments: left foot with much improved erythema, swelling and no tenderness currently Assessment and Plan - Assessment and Plan (Free Text) Plan: Assessment Consider left dorsum of the foot skin and skin structure infection, clinically improving DM HTN S/P S/P tubal ligation S/P breast reduction surgery Plan continue Zyvox day 3 - will recommend 7 days of therapy - discussed with Dr. Segundo
--- NOTE | 2016-08-27 04:36 | DS ---
HISTORY OF PRESENT ILLNESS: The patient is 51 years old, seen and examined, doing well. Her left foot swelling has almost gone. Her erythema has dulled down and has shrunken to 1x1 cm size only. PHYSICAL EXAMINATION: VITAL SIGNS: She is afebrile. Pulse 70, respirations 20, blood pressure 133/80. LUNGS: Bilateral fair air flow. No rhonchi or crackle. HEART: S1, S2 audible. ABDOMEN: Soft and nontender. No rebound. No guarding. NEUROLOGIC: She is awake and alert, communicative, ambulatory. Left foot dorsum erythema significantly improved leaving a small site of erythema 1x1 cm with central scar and scab. ASSESSMENT: 1. Left foot cellulitis. 2. Non-insulin dependent diabetes. 3. Hypertension. 4. Hyperlipidemia. 5. Status post breast reduction surgery in remote past. PLAN: The patient will be discharged today on Zyvox 600 twice a day for 5 more days and she will resume all her medications including Glucovance and enalapril. She will follow up with PMD as outpatient for wound care. Maribel Segundo MD
== END 2016-08-26 14:28 | disposition home or self-care (01) ==
LOC: ED 22:38 → ERH 08-24 01:44 → INTOOBSV 08-24 01:44 → ERH 08-24 01:58 → 5RNO 08-24 02:25
PROVIDERS: ADMIT Internal Medicine; ATTEND Internal Medicine
DX: L03.116 Cellulitis of left lower limb (principal); E11.9 Type 2 diabetes mellitus without complications; I10 Essential (primary) hypertension; E78.5 Hyperlipidemia, unspecified; N39.0 Urinary tract infection, site not specified; S91.302A Unspecified open wound, left foot, initial encounter; Z79.4 Long term (current) use of insulin; Z79.899 Other long term (current) drug therapy; Z98.51 Tubal ligation status
CPT/HCPCS: 73630; 80053; 82948; 85025; 87040; 96365; 99284; G0378; J2020

== ENCOUNTER 2017-03-07 23:52 | Inpatient (IN) | payer OTHER ==
[2017-03-07 23:53] VITALS: BMI 25.4
--- NOTE | 2017-03-08 00:36 | ED PDOC ---
Arrival/HPI - General Chief Complaint: Lower Extremity Problem/Injury Time Seen by Provider: 03/08/17 00:10 - History of Present Illness Narrative History of Present Illness (Text): 03/08/17 00:31 Pt is a 51 yo F sent by her doctor for evaluation and possible admission for diabetic ulcer, cellulitis and osteomyelitis. PMH include NIDDM for many years. Pt noticed this week, her left lower leg and foot swelling secondary to an open hallux ulcer. She reports feeling warm over the last few days but denies cp, sob , palpitations, nausea, vomiting or diarrhea. Currently takes Metformin and Glyburide. Time/Duration: Prior to Arrival Symptom Onset: Gradual Symptom Course: Unchanged, Worsening Quality: Pressure Severity Level: Mild, Moderate Activities at Onset: Rest Context: Sitting, Standing, Home Past Medical History - Provider Review Nursing Documentation Reviewed: Yes - Travel History Have you recently traveled outside [place] w/in the past 3 mons?: No - Infectious Disease Hx of Infectious Diseases: None - Tetanus Immunization Tetanus Immunization: Unknown - Cardiac Hx Cardiac Disorders: Yes Hx Hypertension: Yes - Pulmonary Hx Respiratory Disorders: No - Neurological Hx Neurological Disorder: No - HEENT Hx HEENT Disorder: No - Renal Hx Renal Disorder: No - Endocrine/Metabolic Hx Endocrine Disorders: Yes Hx Diabetes Mellitus Type 2: Yes - Hematological/Oncological Hx Blood Disorders: No - Integumentary Hx Dermatological Disorder: No - Musculoskeletal/Rheumatological Hx Musculoskeletal Disorders: No Hx Falls: Yes - Gastrointestinal Hx Gastrointestinal Disorders: No Other/Comment: abdominal pain - Genitourinary/Gynecological Hx Genitourinary Disorders: No - Psychiatric Hx Psychophysiologic Disorder: No Hx Substance Use: No - Surgical History Other/Comment: notes from prior visit/triage: breast augmentation - Anesthesia Hx Anesthesia: Yes Hx Anesthesia Reactions: No Hx Malignant Hyperthermia: No - Suicidal Assessment Feels Threatened In Home Enviroment: No Family/Social History Family/Social History: No Known Family HX Smoking Status: Never Smoked Hx Alcohol Use: No Hx Substance Use: No Hx Substance Use Treatment: No Allergies/Home Meds Allergies/Adverse Reactions: Allergies No Known Allergies Allergy (Verified 08/21/16 00:37) Home Medications: Home Meds Medication Instructions Recorded Confirmed Glyburide/Metformin HCl [Glyburide 1 tab PO BID 11/11/12 08/23/16 Micronized/Metformin HCl 5 mg-500 M] Enalapril Maleate [Vasotec] 20 mg PO DAILY 03/13/15 08/23/16 Review of Systems - Review of Systems Constitutional: Normal Eyes: Normal ENT: Normal Respiratory: Normal Cardiovascular: Normal Gastrointestinal: Normal Genitourinary Female: Normal Musculoskeletal: Normal Skin: Ulcer (left hallux), Cellulitis (left foot and LE) Neurological: Normal Endocrine: Normal Hemo/Lymphatic: Normal Psychiatric: Normal Physical Exam Vital Signs Temp Pulse Resp BP Pulse Ox 03/08/17 00:56 99 H 18 123/82 99 03/08/17 00:09 98.6 F 105 H 18 158/97 H 97 Temperature: Afebrile Blood Pressure: Normal Pulse: Regular Respiratory Rate: Normal Appearance: Positive for: Well-Appearing, Non-Toxic, Comfortable Pain Distress: None Mental Status: Positive for: Alert and Oriented X 3 - Systems Exam Head: Present: Atraumatic, Normocephalic Pupils: Present: PERRL Extroacular Muscles: Present: EOMI Conjunctiva: Present: Normal Mouth: Present: Moist Mucous Membranes Neck: Present: Normal Range of Motion Respiratory/Chest: Present: Clear to Auscultation, Good Air Exchange. No: Respiratory Distress, Accessory Muscle Use Cardiovascular: Present: Regular Rate and Rhythm, Normal S1, S2. No: Murmurs Abdomen: Present: Normal Bowel Sounds. No: Tenderness, Distention, Peritoneal Signs Back: Present: Normal Inspection Upper Extremity: Present: Normal Inspection. No: Cyanosis, Edema Lower Extremity: Present: Edema (left LE ), Swelling (left foot), Erythema ( left foot) Neurological: Present: GCS=15, CN II-XII Intact, Speech Normal Skin: Present: Warm, Dry, Normal Color, Abscess (left hallux ulcer, stage 2). No: Rashes Psychiatric: Present: Alert, Oriented x 3, Normal Insight, Normal Concentration Medical Decision Making ED Course and Treatment: 03/08/17 00:40 Pt is a 51 yo F sent by her doctor for evaluation and possible admission for diabetic ulcer, cellulitis and osteomyelitis. On exam, pt clearly has a strong putrid odor coming from the left hallux with associated pedal and LE edema, warmth and erythema; was not able to express any purulent material from the ulcer site for culture Plan: cbc, cmp, UA, blood cx, lactate, vbg ivf [address] Segundo consulted and advised to admit to med/surg Pt will need MRI of the left foot Vanco 1 g and Zosyn 3.375 iv q6 started stat 03/08/17 02:30 - Lab Interpretations Lab Results: 03/08/17 00:44 03/08/17 00:44 Lab Results 03/08/17 01:00: Urine Color Yellow, Urine Appearance Sl cloudy, Urine pH 6.0, Ur Specific [place] 1.020, Urine Protein Negative, Urine Glucose (UA) >=1000, Urine Ketones Negative, Urine Blood Small H, Urine Nitrate Negative, Urine Bilirubin Negative, Urine Urobilinogen 0.2, Ur Leukocyte Esterase Negative, Urine RBC 1 - 3, Urine WBC 1 - 3, Ur Epithelial Cells 6 - 8, Urine Bacteria Occ 03/08/17 00:44: Sodium 137, Chloride 98, Potassium 4.6, Carbon Dioxide 27, Anion Gap 17, BUN 29 H, Creatinine 0.9, Est GFR ( Amer) > 60, Est GFR ( Non-Af Amer) > 60, Random Glucose 370 H* D, Calcium 9.8, Total Bilirubin 0.4, AST 16, ALT 15, Alkaline Phosphatase 118, Total Protein 7.6, Albumin 4.1, Globulin 3.5, Albumin/Globulin Ratio 1.2 03/08/17 00:44: WBC 5.8 D, RBC 4.36, Hgb 12.8, Hct 37.4, MCV 85.8, MCH 29.4, MCHC 34.2, RDW 12.3, Plt Count 146, MPV 10.7, Gran % 65.5, Lymph % (Auto) 28.3, [place] % (Auto) 5.7, Eos % (Auto) 0.3 L, Baso % (Auto) 0.2, Gran # 3.83, Lymph # 1.7, [place] # 0.3, Eos # 0.0, Baso # 0.01 03/08/17 00:43: pO2 29 L, VBG pH 7.34, VBG pCO2 58.0, VBG HCO3 31.3 H, VBG Total CO2 33.1 H, VBG O2 Sat (Calc) 57.3, VBG Base Excess 3.9 H, VBG Potassium 4.7, Sodium 137.0, Chloride 101.0, Glucose 403 H* D, Lactate 1.7, FiO2 21.0, Venous Blood Potassium 4.7 - Medication Orders Current Medication Orders: Vancomycin HCl (Vancomycin 1gm) 1 gm in 250 mls @ 167 mls/hr IVPB STAT STA PRN Reason: Protocol Stop: 03/08/17 03:52 Piperacillin Sod/Tazobactam Sod (Zosyn 3.375 In Ns 100ml) 100 mls @ 200 mls/hr IVPB Q6 DIEGO PRN Reason: Protocol Stop: 03/08/17 12:29 Discontinued Medications Sodium Chloride (Sodium Chloride 0.9%) 1,000 mls @ 999 mls/hr IV .Q1H1M STA Stop: 03/08/17 01:44 Last Admin: 03/08/17 01:09 Dose: 999 mls/hr eMAR Start Stop Document 03/08/17 01:09 SS (Rec: 03/08/17 01:10 SS [id number]) Intravenous Solution Start Date 03/08/17 Start Time 01:10 End Date 03/08/17 End time 02:10 Total Infusion Time 60 Insulin Human Regular (Humulin R) 4 units IVP STAT STA Stop: 03/08/17 02:13 Disposition/Present on Arrival - Present on Arrival Any Indicators Present on Arrival: Yes History of DVT/PE: No History of Uncontrolled Diabetes: No Urinary Catheter: No History of Decub. Ulcer: No History Surgical Site Infection Following: None - Disposition Have Diagnosis and Disposition been Completed?: Yes Diagnosis: Cellulitis, Diabetic foot ulcer Disposition Time: 02:00 Patient Plan: Admission Condition: STABLE Discharge Instructions (ExitCare): Cellulitis (ED) Referrals: Maribel Segundo MD [Primary Care Provider] - Follow up with primary Forms: [employer]marks (Frisian)
[2017-03-08] MEDS ORDERED: Sodium Chloride 0.9% 1,000 ML IV STA (00:44)
[2017-03-08 00:55] LABS: BASO # 0.01 K/mm3 (0.0-2.0); BASO % 0.2 % (0.0-3.0); EOS % 0.3 % (1.5-5.0); GRAN # 3.83 (1.4-6.5); GRAN % 65.5 % (50.0-68.0); HEMOGLOBIN 12.8 g/dL (12.0-16.0); LYMPH # 1.7 (1.2-3.4); LYMPH % 28.3 % (22.0-35.0); MEAN CELL VOLUME 85.8 fl (80.0-105.0); MEAN CORPUSCULAR HEMOGLOBIN 29.4 pg (25.0-35.0); MEAN CORPUSCULAR HGB CONC 34.2 g/dl (31.0-37.0); MEAN PLATELET VOLUME 10.7 fl (7.0-11.0); MONO # 0.3 (0.1-0.6); MONO % 5.7 % (1.0-6.0); RBC 4.36 10^6/uL (3.5-6.1); RED CELL DISTRIBUTION WIDTH 12.3 % (11.5-14.5); WHITE BLOOD COUNT 5.8 10^3/ul (4.5-11.0)
[2017-03-08 01:05] LABS: VENOUS BLOOD GAS BASE EXCESS 3.9 mmol/L (0.0-2.0); VENOUS BLOOD GAS PO2 29 mm/Hg (30-55); VENOUS BLOOD PH 7.34 (7.32-7.43)
[2017-03-08 01:13] LABS: URINE BILIRUBIN NEGATIVE (NEGATIVE); URINE BLOOD SMALL (NEGATIVE); URINE GLUCOSE (UA) >=1000 mg/dL (NEGATIVE); URINE LEUKOCYTE ESTERASE NEGATIVE Leu/uL (NEGATIVE); URINE NITRATE NEGATIVE (NEGATIVE); URINE PROTEIN NEGATIVE mg/dL (<30 mg/dL); URINE UROBILINOGEN 0.2 E.U./dL (<1 E.U./dL)
[2017-03-08 01:22] LABS: URINE APPEARANCE SL CLOUDY (CLEAR); URINE COLOR YELLOW (YELLOW)
[2017-03-08 01:32] LABS: ALB/GLOB RATIO 1.2 (1.1-1.8); ALBUMIN 4.1 g/dL (3.0-4.8); ALT/SGPT 15 U/L (7-56); AST/SGOT 16 U/L (14-36); BLOOD UREA NITROGEN 29 mg/dL (7-21); CALCIUM 9.8 mg/dL (8.4-10.5); GFR AFRICAN-AMERICAN > 60; GFR NON-AFRICAN AMERICAN > 60
[2017-03-08 01:39] LABS: URINE BACTERIA OCC (NEG)
[2017-03-08] MEDS ORDERED: Insulin Regular 1 UNITS/0.01 ML ML IVP STA (02:12)
[2017-03-08] MEDS ORDERED: Vancomycin 1gm in NS 250ml 1 GM/250 ML BAG IVPB STA (02:23)
[2017-03-08] MEDS ORDERED: Insulin Regular 1 UNITS/0.01 ML ML SC STA (04:38)
--- NOTE | 2017-03-08 05:43 | CP.PCM.PN ---
Subjective - Date & Time of Evaluation Date of Evaluation: 03/08/17 Time of Evaluation: 05:36 - Subjective Subjective: S:Patient was seen at bed side. Nurse called and told that her blood glucose level was 342 mg %. It was 279 mg%.She did not receive any insulin. Has no complaints. Medical record was reviewed. O: Last Vital Signs 3 Temp 99.7 F H 03/08/17 05:22 Pulse 103 H 03/08/17 05:22 Resp 20 03/08/17 05:22 BP 137/87 03/08/17 05:22 Pulse Ox 99 03/08/17 00:56 Patient is asleep now not in distress. LUNGS:Normal breathing pattern. A:Hypoglycemia. P:Insulin 8 units SC now. Objective - Vital Signs/Intake and Output Vital Signs (last 24 hours): Temp Pulse Resp BP Pulse Ox 99.7 F H 103 H 20 137/87 99 03/08/17 05:22 03/08/17 05:22 03/08/17 05:22 03/08/17 05:22 03/08/17 00:56 - Medications Medications: Current Medications Piperacillin Sod/Tazobactam Sod (Zosyn 3.375 In Ns 100ml) 100 mls @ 200 mls/hr IVPB Q6 DIEGO PRN Reason: Protocol Stop: 03/08/17 12:29
[2017-03-08] MEDS ORDERED: Piperacillin/Tazobact 3.375 gm 100 ML IVPB SCH (06:00)
--- NOTE | 2017-03-08 12:16 | RAD ---
PROCEDURE: Left Foot Radiographs. HISTORY: left great toe ulcer COMPARISON: None. FINDINGS: BONES: There is no acute displaced fracture or bone destruction. Bone alignment is normal. There is diffuse bone demineralization. JOINTS: Normal. SOFT TISSUES: There is a defect in the medial soft tissues of the great toe pain OTHER FINDINGS: Atherosclerotic vascular calcifications are present. . IMPRESSION: Ulceration in the medial soft tissues of the great toe. No radiographic evidence for osteomyelitis.
[2017-03-08] MEDS: Insulin Reg-MEDIUM-Coverage SC SCH ×3 (13:03→21:52)
[2017-03-08] MEDS: Meropenem IV 1 gm in NS 50 ML IVPB SCH (20:33)
[2017-03-08] MEDS: Linezolid 600 mg in D5W 300 ml 600 MG/300 ML BAG IVPB SCH (21:43)
--- NOTE | 2017-03-08 22:16 | CON ---
DATE: HISTORY OF PRESENT ILLNESS: A 51-year-old diabetic female seen at bedside for consultation, evaluation and management of the recent diabetic ulceration on her left great toe. The patient does not know how long the wound has been there but is neuropathic and did not feel the buildup of hyperkeratotic tissue with subsequent ulceration. She was seen by her primary care doctor, who admitted her for possible osteomyelitis given the severity of the wound. The patient's medical history is significant for longstanding uncontrolled htf-efuocge-yxnrordau diabetes with peripheral neuropathy. PAST SURGICAL HISTORY: Includes breast augmentation. MEDICATIONS: Home medications include metformin, glyburide and Vasotec. SOCIAL HISTORY: The patient denies a history of smoking, drinking alcohol and denies any illicit drug use. ALLERGIES: THE PATIENT HAS NO KNOWN DRUG ALLERGIES HOWEVER, UPON RECENT ADMINISTRATION OF VANCOMYCIN, SHE BECAME EXTREMELY ITCHY AND THE VANCOMYCIN WAS IMMEDIATELY DISCONTINUED, THAT OCCURRED TODAY. PIPERACILLIN AND TAZOBACTAM. LABORATORY FINDINGS: Reveal a white count of 5.8, hemoglobin of 12.8, hematocrit of 37.4, platelet count of 146. There is no microbiology report. There are no x-rays or arterial or vascular studies done. OBJECTIVE: VITAL SIGNS: The patient's vital signs revealed temperature of 99.7, pulse rate of 103, blood pressure of 137/82, respiratory rate of 20. EXTREMITIES: Weakly palpable dorsalis pedis pulse noted bilaterally. Nonpalpable posterior tibial pulse noted bilaterally. The patient is unable to detect 5.07 g monofilament wire testing bilaterally. Lower extremity skin presents thin, shining discolored. There is a full-thickness ulceration located at the medial plantar aspect of the left hallux that measures approximately 2 cm x 2 cm x 0.3 cm in depth. The wound does not probe to tendon or bone. There is no purulence emanating from the wound, however, there is slight malodor. The wound does not probe to tendon or bone. The entire hallux remains edematous and erythematous. There are no signs of ascending cellulitis. ASSESSMENT: Full-thickness diabetic ulceration located on the left hallux secondary to diabetic neuropathy and hyperkeratotic buildup. PLAN: Culture was taken and submitted for sensitivities. X-rays will be ordered to rule out osteomyelitis. MRI maybe warranted if x-rays are inconclusive. The patient was placed on vancomycin; however, she experienced severe itching and vancomycin was discontinued. Recommend infectious disease consult to evaluate culture and sensitivity results and prescribe accordingly. RECOMMENDATIONS: We will order arterial Dopplers as I cannot palpate a posterior tibial pulse to ascertain lower extremity perfusion. Her wound was cleansed with normal sterile saline. We will apply Santyl ointment and a dry sterile dressing daily. We will order a forefoot offloading shoe to prevent the ulceration from too much pressure, which would impede wound healing. We will await arterial results, await culture results as well as x-rays. The patient will be seen daily. Mina Marion DPM
--- NOTE | 2017-03-09 04:57 | HP ---
HISTORY OF PRESENT ILLNESS: The patient is a 51-year-old who was seen in office yesterday with worsening right big toe wound. I saw the patient in office and referred her to Emergency Room for further evaluation to rule out osteomyelitis. PAST MEDICAL HISTORY: She has significant past medical history of efw-dbugmrn-mtoumcle and history of hypertension. PAST SURGICAL HISTORY: Significant for tubal ligation and breast reduction. ALLERGIES: SHE IS ALLERGIC TO ZOSYN AND TAZOBACTAM. MEDICATIONS AT HOME: She is on metformin 500 twice a day, glyburide 5 mg twice a day, and allopurinol 20 mg daily. SOCIAL HISTORY: She is . Denies smoking or drinking, no alcohol use. PHYSICAL EXAMINATION: GENERAL: She is awake, alert, oriented. Able to communicate. VITAL SIGNS: She has temperature 99.7, pulse 103, respirations 20 and blood pressure 137/82. LUNGS: Bilateral fair airflow. No rhonchi or crackles. HEART: S1 and S2 audible. ABDOMEN: Soft, nontender. No rebound. No guarding. NEUROLOGIC: She is awake, alert, oriented, communicative. EXTREMITIES: Right big toe has swelling and yellow base ulcer on her right big toe lateral aspect with significant swelling and erythema. LABORATORY DATA: WBC 5.8, hemoglobin 12.8, hematocrit 37.4 and platelets 146. Chemistry; sodium 137, potassium 4.6, chloride 98, CO2 of 27, BUN 29, creatinine 0.9 and blood sugar of 352. ASSESSMENT: 1. Right big toe cellulitis. 2. Auo-rmmgkjd-zuseldqij diabetes. 3. Hypertension. PLAN: Currently, the patient is on meropenem. She is on Zyvox as per ID recommendation. Awaiting podiatry input. Analgesics as needed. We will follow up this patient in a.m. Maribel Segundo MD
[2017-03-09] MEDS: Meropenem IV 1 gm in NS 50 ML IVPB SCH ×3 (06:50→20:52)
[2017-03-09] MEDS: Insulin Reg-MEDIUM-Coverage SC SCH ×2 (08:20→12:33)
[2017-03-09] MEDS: Collagenase 250 Units/gm Ointment(30 gm) TOP SCH (10:45)
[2017-03-09] MEDS: Linezolid 600 mg in D5W 300 ml 600 MG/300 ML BAG IVPB SCH ×2 (10:45→21:50)
--- NOTE | 2017-03-09 16:42 | CP.PCM.PN ---
Subjective - Date & Time of Evaluation Date of Evaluation: 03/09/17 Time of Evaluation: 13:50 - Subjective Subjective: 51 year old diabetic female seen at bedside for left great toe ulcer. Pt denies pain or discomfort to the area at this time. Pt denies acute overnight events as well as f/c/cp/sob/n/v. Pt is in good spirits at time of evaluation. Objective - Vital Signs/Intake and Output Vital Signs (last 24 hours): Temp Pulse Resp BP Pulse Ox 98 F 77 16 143/98 H 96 03/09/17 08:06 03/09/17 08:06 03/09/17 08:06 03/09/17 08:06 03/09/17 08:06 Intake and Output: 03/09/17 03/09/17 06:59 18:59 Intake Total 1500 Balance 1500 - Medications Medications: Current Medications Acetaminophen (Tylenol 325mg Tab) 650 mg PO Q6H PRN PRN Reason: Fever >100.4 F Last Admin: 03/09/17 08:18 Dose: 650 mg Collagenase (Santyl) 0 gm TOP DAILY [facility] Last Admin: 03/09/17 10:45 Dose: 1 u Glyburide (Micronase) 5 mg PO 0800,1700 DIEGO Last Admin: 03/09/17 10:46 Dose: 5 mg Meropenem (Merrem Iv 1 Gm Premix) 50 mls @ 100 mls/hr IVPB Q8H DIEGO PRN Reason: Protocol Last Admin: 03/09/17 12:33 Dose: 100 mls/hr Linezolid (Zyvox 600mg/300ml D5w) 600 mg in 300 mls @ 200 mls/hr IVPB Q12 DIEGO PRN Reason: Protocol Stop: 03/17/17 22:01 Last Admin: 03/09/17 10:45 Dose: 200 mls/hr Insulin Human Regular (Humulin R High) 0 units SC ACHS DIEGO PRN Reason: Protocol Losartan Potassium (Cozaar) 50 mg PO DAILY DIEGO Metformin HCl (Glucophage) 1,000 mg PO BID DIEGO - Constitutional Appears: Well, Non-toxic, No Acute Distress - Extremities Exam Additional comments: Left lower extremity focused. DERM: Full thickness ulceration measuring 1.6 x 1.8 x 0.3 cm noted to plantar medial aspect of left hallux. Ulcerative base if a largely fibrotic and friable. Wound margins are mildly macerated. No active drainage, nor mal-odor, nor lazaro-wound erythema noted. VASC: Weakly palpable DP and PT pulses bilaterally. Pedal temperature runs warm to cool, proximal to distal within normal limits. Absent pedal hair growth. NEURO: Protective sensation grossly absent to level of forefoot. MUSCK: Pedal muscle strength and tone within normal limits. No gross pedal deformities noted. - Neurological Exam Neurological Exam: Alert, Awake, Oriented x3 - Psychiatric Exam Psychiatric exam: Normal Affect, Normal Mood Assessment and Plan - Assessment and Plan (Free Text) Assessment: 51 year old female with [place] Grade 2 ulceration to left distal hallux, secondary to diabetic neuropathy. Plan: Pt seen and evaluated. Discussed with attending, Dr Astorga who endorsed the following plan. Chart, labs, and vitals reviewed. Afebrile; WBC= 5.8K, absent leukocytosis. ESR= 56; CRP= 13.09; elevated outside normal limits. Wound culture results-pending, preliminary shows G(+) cocci. Left foot radiographs- negative for soft tissue emphysema and OM of hallux. Arterial duplex results- pending. MRI- ordered pending. Dressed wound with Santyl, Wet-to-dry dressing and DSD. Continue IV abx per ID. Podiatry will continue to follow while inhouse.
[2017-03-09] MEDS: Insulin Reg-HIGH-Coverage SC SCH ×2 (17:27→22:19)
--- NOTE | 2017-03-09 21:59 | PN ---
DATE: SUBJECTIVE: The patient is a 51-year-old, seen and examined, sitting in chair, and seem to be comfortable. No nausea or vomiting. No diarrhea. Eating and tolerating. PHYSICAL EXAMINATION: VITAL SIGNS: She is afebrile, pulse 77, respirations 16, and blood pressure 143/98. LUNGS: Bilateral fair airflow. No rhonchi or crackles. HEART: S1 and S2 audible. ABDOMEN: Soft and nontender. No rebound. No guarding. NEUROLOGIC: The patient is awake, alert, and oriented. LABORATORY DATA: Her blood cultures are negative. Wound culture positive for Gram-positive coccyx, identification to follow. Her x-ray of chest is negative. ASSESSMENT: 1. Left big toe cellulitis. 2. Dzy-hezapgg-mfrhfzths diabetes. 3. Hypertension. PLAN: I will increase her metformin to 1000 b.i.d. and monitor her blood sugar. Start her on losartan 50 mg daily. The patient is currently on meropenem and Zyvox. We will discuss with Podiatry to make discharge plan that if she can be switched to oral and have wound followed as outpatient. Maribel Segundo MD
--- NOTE | 2017-03-09 23:47 | CON ---
DATE: 03/09/2017 LOCATION: The patient is seen early this morning in room number 568, bed 1. CHIEF COMPLAINT: Left foot infection times 1 week duration. HISTORY OF PRESENT ILLNESS: This is a 51-year-old female with past medical history significant for diabetes mellitus and hypertension and was admitted through the Emergency Room with cellulitis and abscess of the foot and Infectious Diseases consultation requested. The patient states that she is started as a small break in the skin and it got progressively worse over the last one week. She denies any fevers and she has had no chills. No chest pain, shortness of breath or cough. No abdominal pain, diarrhea or constipation. No dysuria or frequency. No headaches or blurred vision. PAST MEDICAL HISTORY: Significant for diabetes mellitus, and hypertension. PAST SURGICAL HISTORY: Significant for , breast reduction and tubal ligation. MEDICATIONS: At home are include sulfa in the past, enalapril and metformin and glyburide combination. ALLERGIES: THE PATIENT STATES THAT SHE IS ALLERGIC TO PIPERACILLIN AND TAZOBACTAM IN THE PAST, BUT SHE IS TOLERATED AUGMENTIN IN THE PAST. SHE STATES SHE HAS HAD DIFFICULTY TOLERATING THE PIPERACILLIN AND WHAT THEIR INTOLERANCES SHE IS NOT QUITE SURE. PHYSICAL EXAMINATION: VITAL SIGNS: The patient's temperature is 99.7, heart rate of 103, respiratory rate of 20, and blood pressure is 130/80. HEENT: Examination of HEENT is unremarkable. NECK: Supple. LUNGS: Have decreased breath sounds. HEART: Exam reveals normal S1 and S2. GASTROINTESTINAL: Abdominal examination is soft and nontender. EXTREMITIES: Examination of the left big toe reveals significant erythema and an ulcer with necrotic area in the middle. The pulses are intact. LABORATORY DATA: Laboratory examination reveals a white count of 5.8, hemoglobin of 12, and platelets of 146. Sedimentation rate is reported to be 56. Gases are noted. The chemistries revealed the patient's creatinine is 0.9 with a BUN of 29 and the patient's glucose is 370. Urinalysis is noted. Microbiology reveals the blood cultures are no growth at 24 hours. The wound cultures are pending. Dr. Segundo's history of physical examination is reviewed. DIAGNOSTIC DATA: The patient had an x-ray of the foot, which shows no bone destruction and no evidence of osteomyelitis. Dr. Marion's consultation from yesterday is reviewed. ASSESSMENT AND PLAN: This is a 51-year-old female with diabetes and hypertension with number one, has a left foot cellulitis and left big toe ulcer and cellulitis. We will treat the patient with Zyvox and meropenem. Should rule out underlying osteomyelitis. She had an imaging bone scan if unable to have magnetic resonance imaging because of breast implants and a CT scan of the foot. The patient should have Vascular evaluation, in addition to the Podiatric evaluation and rule out underlying osteomyelitis and peripheral vascular disease. We will follow with you. She is on Zyvox and meropenem. Pending wound cultures. Mike Cotton MD
[2017-03-10] MEDS: Meropenem IV 1 gm in NS 50 ML IVPB SCH ×2 (05:42→12:02)
--- NOTE | 2017-03-10 09:31 | US ---
PROCEDURE: Lower extremity NOLBERTO exam HISTORY: Peripheral vascular disease with pain and ulceration. Diabetes PHYSICIAN(S): Yosi Green MD. FINDINGS: The resting NOLBERTO's are normal: right, 1.12and left, 1.11. The brachial systolic pressures are symmetric. The high thigh pressures and waveforms are relatively normal. The segmental pressures are normal bilaterally. The left calf, ankle, and metatarsal waveforms are normal. The right calf, ankle, and metatarsal waveforms are decreased in amplitude compared to the left. No pressure gradients are seen. Its clinical significance is uncertain. IMPRESSION: 1. Relatively normal NOLBERTO and PVR examination at rest.
[2017-03-10] MEDS: Insulin Reg-HIGH-Coverage SC SCH ×4 (09:39→22:30)
[2017-03-10] MEDS: Collagenase 250 Units/gm Ointment(30 gm) TOP SCH (09:40)
[2017-03-10] MEDS: Linezolid 600 mg in D5W 300 ml 600 MG/300 ML BAG IVPB SCH ×2 (09:41→21:47)
--- NOTE | 2017-03-10 13:07 | MRI ---
PROCEDURE: MRI of the left foot without contrast HISTORY: ulcer hallux left COMPARISON: TECHNIQUE: MRI of the left foot was performed in multiple planes using multiple pulse sequences. FINDINGS: There is a skin ulcer along the lateral aspect of the big toe. There is very minimal marrow edema in the 1st distal phalanx. This can be seen on image 9 series 7. This is suspicious for early osteomyelitis. The proximal phalanx is unremarkable. The metatarsals have a normal signal intensity. IMPRESSION: Skin ulcer in the lateral aspect of the big toe. Minimal marrow edema in the 1st distal phalanx suspicious for early osteomyelitis
--- NOTE | 2017-03-10 14:23 | CP.PCM.PN ---
Subjective - Date & Time of Evaluation Date of Evaluation: 03/10/17 Time of Evaluation: 14:23 - Subjective Subjective: 51 year old diabetic female seen at bedside with attending Dr. Astorga for left great toe ulcer. Pt denies pain or discomfort to the area at this time. She states she has had the ulcer for 1 week total. Denies any history of foot wounds or infections. States she saw a foot doctor once a long time ago but for a different concern. She admits to her daily fasting blood sugars being around 150. Denies knowing her HgA1C but states she sees her PMD Dr. Segundo regularly. Pt denies acute overnight events as well as F/C/N/V/CP/SOB. Objective - Vital Signs/Intake and Output Vital Signs (last 24 hours): Temp Pulse Resp BP Pulse Ox 97.8 F 80 20 142/80 98 03/10/17 07:30 03/10/17 09:39 03/10/17 07:30 03/10/17 09:39 03/10/17 07:30 Intake and Output: 03/10/17 03/10/17 06:59 18:59 Intake Total 200 Output Total 0 Balance 200 - Medications Medications: Current Medications Acetaminophen (Tylenol 325mg Tab) 650 mg PO Q6H PRN PRN Reason: Fever >100.4 F Last Admin: 03/09/17 21:49 Dose: 650 mg Collagenase (Santyl) 0 gm TOP DAILY [facility] Last Admin: 03/10/17 09:40 Dose: 1 u Glyburide (Micronase) 5 mg PO 0800,1700 [facility] Last Admin: 03/10/17 09:40 Dose: 5 mg Meropenem (Merrem Iv 1 Gm Premix) 50 mls @ 100 mls/hr IVPB Q8H [facility] PRN Reason: Protocol Last Admin: 03/10/17 12:02 Dose: 100 mls/hr Linezolid (Zyvox 600mg/300ml D5w) 600 mg in 300 mls @ 200 mls/hr IVPB Q12 [facility] PRN Reason: Protocol Stop: 03/17/17 22:01 Last Admin: 03/10/17 09:41 Dose: 200 mls/hr Insulin Human Regular (Humulin R High) 0 units SC ACHS [facility] PRN Reason: Protocol Last Admin: 03/10/17 12:03 Dose: 4 units Losartan Potassium (Cozaar) 50 mg PO DAILY [facility] Last Admin: 03/10/17 09:39 Dose: 50 mg Metformin HCl (Glucophage) 1,000 mg PO WM [facility] Last Admin: 03/10/17 12:04 Dose: 1,000 mg - Constitutional Appears: Well, Non-toxic - Extremities Exam Additional comments: Left lower extremity focused. Vasc: DP/PT pulses palpable 2/4. Pedal temperature runs warm to cool, proximal to distal within normal limits. Absent pedal hair growth. Derm: Full thickness ulceration measuring 1.6 x 1.8 x 0.3 cm noted to plantar medial aspect of left hallux. Ulcerative base is a mixture of fibrotic and necrotic tissue. Wound margins are mildly hyperkeratotic and macerated. Post debridement, wound margins exhibit healthy epithelialized skin. Wound base is mostly fibrotic with minor amounts of granulation tissue present. No active drainage, no malodor, no lazaro-wound erythema noted. Neuro: Protective sensation slightly diminished Ortho: Pedal muscle strength and tone within normal limits. No gross pedal deformities noted. - Neurological Exam Neurological Exam: Alert, Awake, Oriented x3 - Psychiatric Exam Psychiatric exam: Normal Affect, Normal Mood Assessment and Plan - Assessment and Plan (Free Text) Assessment: 51 year old female with diabetic foot ulceration to left distal hallux, secondary to diabetes mellitus with peripheral neuropathy Plan: Pt seen and evaluated with attending, Dr Astorga Chart, labs, and vitals reviewed - afebrile, NNL ESR= 56; CRP= 13.09; elevated outside normal limits Wound culture shows growth of B-hemolytic strep grp B Left foot radiographs- negative for soft tissue emphysema and OM of hallux LLE MRI reveals early signs of osteomyelitis to L hallux Arterial duplex indicates relatively normal NOLBERTO and PVRs at rest Aseptic excisional debridement of non-viable tissue down to healthy bleeding subcutaneous tissue with sterile forceps and sterile #15 blade Pt tolerated procedure without incident Wound cleansed with saline and dressed with Optifoam New wound culture taken of L hallux ulceration Continue IV abx per ID Continue WBAT with forefoot offloading shoe to LLE Podiatry will continue to follow while in house
--- NOTE | 2017-03-10 18:03 | CP.PCM.PN ---
Subjective - Date & Time of Evaluation Date of Evaluation: 03/10/17 Time of Evaluation: 12:05 - Subjective Subjective: Comfortable in bed, no fevers, not in distress. Less pain on her left foot. Objective - Vital Signs/Intake and Output Vital Signs (last 24 hours): Temp Pulse Resp BP Pulse Ox 98.7 F 62 18 122/55 L 98 03/10/17 16:00 03/10/17 16:00 03/10/17 16:00 03/10/17 16:00 03/10/17 16:00 Intake and Output: 03/10/17 03/10/17 06:59 18:59 Intake Total 200 540 Output Total 0 Balance 200 540 - Medications Medications: Current Medications Acetaminophen (Tylenol 325mg Tab) 650 mg PO Q6H PRN PRN Reason: Fever >100.4 F Last Admin: 03/09/17 21:49 Dose: 650 mg Collagenase (Santyl) 0 gm TOP DAILY [facility] Last Admin: 03/10/17 09:40 Dose: 1 u Glyburide (Micronase) 5 mg PO 0800,1700 [facility] Last Admin: 03/10/17 17:46 Dose: 5 mg Meropenem (Merrem Iv 1 Gm Premix) 50 mls @ 100 mls/hr IVPB Q8H [facility] PRN Reason: Protocol Last Admin: 03/10/17 12:02 Dose: 100 mls/hr Linezolid (Zyvox 600mg/300ml D5w) 600 mg in 300 mls @ 200 mls/hr IVPB Q12 [facility] PRN Reason: Protocol Stop: 03/17/17 22:01 Last Admin: 03/10/17 09:41 Dose: 200 mls/hr Insulin Human Regular (Humulin R High) 0 units SC ACHS [facility] PRN Reason: Protocol Last Admin: 03/10/17 17:47 Dose: 2 units Losartan Potassium (Cozaar) 50 mg PO DAILY [facility] Last Admin: 03/10/17 09:39 Dose: 50 mg Metformin HCl (Glucophage) 1,000 mg PO WM [facility] Last Admin: 03/10/17 17:47 Dose: 1,000 mg - Constitutional Appears: Non-toxic - Head Exam Head Exam: NORMAL INSPECTION - ENT Exam ENT Exam: Mucous Membranes Moist - Neck Exam Neck Exam: absent: Meningismus - Respiratory Exam Respiratory Exam: Decreased Breath Sounds - Cardiovascular Exam Cardiovascular Exam: +S1, +S2 - GI/Abdominal Exam GI & Abdominal Exam: Soft. absent: Tenderness Assessment and Plan - Assessment and Plan (Free Text) Plan: Assessment Left foot cellulitis with left hallux ulcer with early distal phalanx osteomyelitis on MRI DM HTN S/P S/P tubal ligation S/P breast reduction surgery Plan Continue Zyvox and will d/c Merrem; ulcer growing Group B strep; MRI reviewed - patient will need at least 4 weeks of antibiotics with weekly ESR, CRP, CBC, CMP follow up further Podiatry recommendations
[2017-03-10] MEDS ORDERED: Vancomycin 25 MG/ML PO STA (21:41)
--- NOTE | 2017-03-10 22:47 | PN ---
DATE: SUBJECTIVE: Patient is a 51-year-old, seen and examined, lying in bed, seems to be to be comfortable. Minimal foot pain. PHYSICAL EXAMINATION: VITAL SIGNS: She is afebrile. Pulse 62, respirations 18, blood pressure 122/55. LUNGS: Bilateral fair air flow. No rhonchi or crackle. HEART: S1 and S2 audible. ABDOMEN: Soft, nontender. No rebound. No guarding. NEUROLOGIC: She is awake, alert, able to communicate. EXTREMITIES: Right big toe is in the dressing. No leg edema. LABORATORY DATA: ESR is 56. Chemistry, blood sugar is 290. Wound culture positive for beta-hemolytic streptococci B. She had MRI of the right foot done that shows skin ulcer in the lateral aspect of the big toe, minimal marrow edema in the first distal, suspicious for early osteomyelitis. ASSESSMENT: 1. Right big toe cellulitis versus osteomyelitis. 2. Cdb-zqdybfr-uixxqvbul diabetes. 3. Hypertension. 4. Hyperlipidemia. PLAN: Currently patient is on Zyvox. Meropenem has been discontinued. I will discuss with Dr. Astorga and ID for discharge plan if we can sent her on p.o. Zyvox. Maribel Segundo MD
[2017-03-11] MEDS: Insulin Reg-HIGH-Coverage SC SCH ×5 (08:20→22:02)
[2017-03-11] MEDS: Collagenase 250 Units/gm Ointment(30 gm) TOP SCH (10:01)
[2017-03-11] MEDS: Linezolid 600 mg in D5W 300 ml 600 MG/300 ML BAG IVPB SCH ×2 (10:01→22:50)
--- NOTE | 2017-03-11 15:24 | CP.PCM.PN ---
<ReneAimee - Last Filed: 03/11/17 15:24> Subjective - Date & Time of Evaluation Date of Evaluation: 03/11/17 Time of Evaluation: 15:23 - Subjective Subjective: 51 y/o female seen at bedside with attending Dr. Marion regarding left hallux ulcer. Pt resting comfortably in bed in NAD. Dressing clean dry and intact to L big toe. She denies having any pain or noting any drainage through her dressing. States she has not gotten her PICC line placed yet. Denies F/C/N/V/CP/ SOB Objective - Vital Signs/Intake and Output Vital Signs (last 24 hours): Temp Pulse Resp BP Pulse Ox 98.6 F 80 20 136/73 97 03/11/17 07:30 03/11/17 10:01 03/11/17 07:30 03/11/17 10:01 03/11/17 07:30 Intake and Output: 03/11/17 03/11/17 06:59 18:59 Intake Total 600 Balance 600 - Medications Medications: Current Medications Acetaminophen (Tylenol 325mg Tab) 650 mg PO Q6H PRN PRN Reason: Fever >100.4 F Last Admin: 03/09/17 21:49 Dose: 650 mg Collagenase (Santyl) 0 gm TOP DAILY [facility] Last Admin: 03/11/17 10:01 Dose: 1 appl Glyburide (Micronase) 10 mg PO 0800,1700 [facility] Last Admin: 03/11/17 08:19 Dose: 10 mg Linezolid (Zyvox 600mg/300ml D5w) 600 mg in 300 mls @ 200 mls/hr IVPB Q12 [facility] PRN Reason: Protocol Stop: 03/17/17 22:01 Last Admin: 03/11/17 10:01 Dose: 200 mls/hr Insulin Human Regular (Humulin R High) 0 units SC ACHS [facility] PRN Reason: Protocol Last Admin: 03/11/17 12:17 Dose: 7 units Losartan Potassium (Cozaar) 50 mg PO DAILY [facility] Last Admin: 03/11/17 10:01 Dose: 50 mg Metformin HCl (Glucophage) 1,000 mg PO WM [facility] Last Admin: 03/11/17 12:17 Dose: 1,000 mg Ondansetron HCl (Zofran Inj) 4 mg IVP Q6H PRN PRN Reason: Nausea/Vomiting Sitagliptin Phosphate (Januvia) 100 mg PO DAILY [facility] - Constitutional Appears: Well, Non-toxic, No Acute Distress - Extremities Exam Additional comments: Left lower extremity focused. Vasc: DP/PT pulses palpable 2/4. Pedal temperature runs warm to cool, proximal to distal within normal limits. Absent pedal hair growth. Derm: Full thickness ulceration measuring 1.6 x 1.5 x 0.3 cm noted to plantar medial aspect of left hallux. Ulcerative base is mostly fibrotic tissue with minor necrotic tissue present. Wound borders negative for maceration or hyperkeratosis. No active drainage, no malodor, no lazaro-wound erythema noted. Neuro: Protective sensation slightly diminished Ortho: Pedal muscle strength and tone within normal limits. No gross pedal deformities noted. - Neurological Exam Neurological Exam: Alert, Awake, Oriented x3 - Psychiatric Exam Psychiatric exam: Normal Affect, Normal Mood Assessment and Plan - Assessment and Plan (Free Text) Assessment: 51 year old female with diabetic foot ulceration to left distal hallux, secondary to diabetes mellitus with peripheral neuropathy Plan: Pt seen and evaluated with attending Dr. Marion Chart, labs, and vitals reviewed - afebrile, NNL ESR 56; CRP 13.09; elevated outside normal limits Wound culture taken 03/08 shows growth of B-hemolytic strep grp B Left foot radiographs- negative for soft tissue emphysema and OM of hallux LLE MRI reveals early signs of osteomyelitis to L hallux Arterial duplex indicates relatively normal NOLBERTO and PVRs at rest Wound cleansed with saline and dressed with Optifoam New wound cx 03/10 prelim shows growth of G+ cocci Continue IV abx per ID - Zyvox Continue WBAT with forefoot offloading shoe to LLE Podiatry will continue to follow while in house <Mina Marion - Last Filed: 03/11/17 16:52> Objective - Vital Signs/Intake and Output Vital Signs (last 24 hours): Temp Pulse Resp BP Pulse Ox 98.6 F 80 20 136/73 97 03/11/17 07:30 03/11/17 10:01 03/11/17 07:30 03/11/17 10:01 03/11/17 07:30 Intake and Output: 03/11/17 03/11/17 06:59 18:59 Intake Total 600 Balance 600 - Medications Medications: Current Medications Acetaminophen (Tylenol 325mg Tab) 650 mg PO Q6H PRN PRN Reason: Fever >100.4 F Last Admin: 03/09/17 21:49 Dose: 650 mg Collagenase (Santyl) 0 gm TOP DAILY [facility] Last Admin: 03/11/17 10:01 Dose: 1 appl Glyburide (Micronase) 10 mg PO 0800,1700 [facility] Last Admin: 03/11/17 08:19 Dose: 10 mg Linezolid (Zyvox 600mg/300ml D5w) 600 mg in 300 mls @ 200 mls/hr IVPB Q12 [facility] PRN Reason: Protocol Stop: 03/17/17 22:01 Last Admin: 03/11/17 10:01 Dose: 200 mls/hr Insulin Human Regular (Humulin R High) 0 units SC ACHS [facility] PRN Reason: Protocol Last Admin: 03/11/17 12:17 Dose: 7 units Losartan Potassium (Cozaar) 50 mg PO DAILY [facility] Last Admin: 03/11/17 10:01 Dose: 50 mg Metformin HCl (Glucophage) 1,000 mg PO WM [facility] Last Admin: 03/11/17 12:17 Dose: 1,000 mg Ondansetron HCl (Zofran Inj) 4 mg IVP Q6H PRN PRN Reason: Nausea/Vomiting Sitagliptin Phosphate (Januvia) 100 mg PO DAILY [facility] Attending/Attestation - Attestation I have personally seen and examined this patient.: Yes I have fully participated in the care of the patient.: Yes I have reviewed all pertinent clinical information, including history, physical exam and plan: Yes
--- NOTE | 2017-03-11 18:21 | PN ---
DATE: SUBJECTIVE: The patient is a 51-year-old, seen and examined, lying in bed, seems to be comfortable. States she did not sleep last night because of diarrhea. She was given a dose of Imodium, that helped. PHYSICAL EXAMINATION: VITAL SIGNS: She is afebrile. Pulse is 80, respirations 20, and blood pressure is 136/73. LUNGS: Bilateral fair airflow. No rhonchi or crackle. HEART: S1 and S2 audible. ABDOMEN: Soft and nontender. No rebound and no guarding. NEUROLOGICAL: The patient is awake, alert, oriented, able to communicate. LABORATORY EXAM: Her blood sugar is 286. MRI shows early changes for osteomyelitis. ASSESSMENT: 1. Right big toe osteomyelitis. 2. Big toe cellulitis. 3. Poorly controlled diabetes. PLAN: The patient is currently on IV Zyvox. We will continue her on losartan. I will add Januvia for better control of diabetes. If the patient remains stable, we will make discharge plans. Maribel Segundo MD
--- NOTE | 2017-03-12 | PN ---
DATE: 03/11/2017 SUBJECTIVE: The patient is in bed, in no acute distress, and nontoxic. PHYSICAL EXAMINATION: VITAL SIGNS: Temperature is 98, blood pressure is 130/70, and respiratory rate of 16. HEENT: Examination of HEENT is unremarkable. NECK: Supple. LUNGS: Have decreased breath sounds. HEART: Normal S1 and S2. ABDOMEN: Soft. LABORATORY DATA: Laboratory examination reveals a white count of 5.8, hemoglobin of 12 and platelets of 146. BUN of 29 and creatinine of 0.9. Microbiology reveals the toe culture is group B Streptococcus and another culture is Gram-positive cocci. The blood cultures have no growth. The patient is currently on linezolid and p.o. vancomycin. Stool Clostridium difficile antigen and toxin are negative. ASSESSMENT AND PLAN: This is a 51-year-old female seen earlier today in room number 568, bed 1, with a left foot cellulitis with a group B Streptococcus and magnetic resonance imaging, osteomyelitis with diabetes mellitus, and hypertension. She is on Zyvox with a group B Streptococcus, and four weeks of antibiotics. Weekly sedimentation rate, C-reactive protein, stool Clostridium difficile antigen and toxin are both negative for pseudomembranous colitis, very unlikely. May be we will switch to p.o. Zyvox and discontinue the p.o. vancomycin. We are waiting for identification of Gram-positive cocci from the second culture. The initial culture with a group B Streptococcus and beta hemolytic Streptococcus is reviewed. SENSITIVE TO PENICILLIN AND SENSITIVE TO AMPICILLIN. Mike Cotton MD
[2017-03-12] MEDS: Insulin Reg-HIGH-Coverage SC SCH ×3 (08:19→17:00)
[2017-03-12] MEDS: Linezolid 600 mg in D5W 300 ml 600 MG/300 ML BAG IVPB SCH (09:41)
[2017-03-12] MEDS: Collagenase 250 Units/gm Ointment(30 gm) TOP SCH (09:42)
[2017-03-12 09:46] VITALS: RESP 18
--- NOTE | 2017-03-12 13:13 | CP.PCM.PN ---
Subjective - Date & Time of Evaluation Date of Evaluation: 03/12/17 Time of Evaluation: 13:13 - Subjective Subjective: 51 y/o female seen at bedside this morning regarding left hallux ulceration. Pt sleeping at time of visit. Upon awakening, denies any pain to the left foot. States her dressing has remained on. Antibiotics are infusing well to her left wrist. She admits to using the forefoot offloading shoe at all times weightbearing to the left lower extremity. She denies F/C/N/V/CP/SOB Objective - Vital Signs/Intake and Output Vital Signs (last 24 hours): Temp Pulse Resp BP Pulse Ox 98.2 F 81 18 164/98 H 100 03/12/17 08:00 03/12/17 09:40 03/12/17 08:00 03/12/17 09:40 03/12/17 08:00 Intake and Output: 03/12/17 03/12/17 06:59 18:59 Intake Total 360 Balance 360 - Medications Medications: Current Medications Acetaminophen (Tylenol 325mg Tab) 650 mg PO Q6H PRN PRN Reason: Fever >100.4 F Last Admin: 03/09/17 21:49 Dose: 650 mg Collagenase (Santyl) 0 gm TOP DAILY [facility] Last Admin: 03/12/17 09:42 Dose: Not Given Glyburide (Micronase) 10 mg PO 0800,1700 [facility] Last Admin: 03/12/17 08:20 Dose: 10 mg Linezolid (Zyvox 600mg/300ml D5w) 600 mg in 300 mls @ 200 mls/hr IVPB Q12 [facility] PRN Reason: Protocol Stop: 03/17/17 22:01 Last Admin: 03/12/17 09:41 Dose: 200 mls/hr Insulin Human Regular (Humulin R High) 0 units SC ACHS [facility] PRN Reason: Protocol Last Admin: 03/12/17 12:09 Dose: 7 units Losartan Potassium (Cozaar) 50 mg PO DAILY [facility] Last Admin: 03/12/17 09:40 Dose: 50 mg Metformin HCl (Glucophage) 1,000 mg PO WM [facility] Last Admin: 03/12/17 12:14 Dose: Not Given Ondansetron HCl (Zofran Inj) 4 mg IVP Q6H PRN PRN Reason: Nausea/Vomiting Sitagliptin Phosphate (Januvia) 100 mg PO DAILY [facility] Last Admin: 03/12/17 09:42 Dose: Not Given - Constitutional Appears: Well, Non-toxic, No Acute Distress - Extremities Exam Additional comments: Left lower extremity focused. Vasc: DP/PT pulses palpable 2/4. Pedal temperature runs warm to cool, proximal to distal within normal limits. Absent pedal hair growth. Derm: Full thickness ulceration measuring 1.6 x 1.5 x 0.3 cm noted to plantar medial aspect of left hallux. Ulcerative base is mixed fibrotic and granular tissue. Decreased necrotic tissue is noted today, indicating successful enzymatic debridement with use of Santyl. Wound borders negative for maceration or hyperkeratosis. No active drainage, no malodor, no lazaro-wound erythema noted. Neuro: Protective sensation slightly diminished Ortho: Pedal muscle strength and tone within normal limits. No gross pedal deformities noted. - Neurological Exam Neurological Exam: Alert, Awake, Oriented x3 - Psychiatric Exam Psychiatric exam: Normal Affect, Normal Mood Assessment and Plan - Assessment and Plan (Free Text) Assessment: 51 year old female with diabetic foot ulceration to left distal hallux with osteomyelitis, secondary to diabetes mellitus with peripheral neuropathy Plan: Pt seen and evaluated at bedside Discussed plan with attending Dr. Astorga Chart, labs, and vitals reviewed - afebrile, NNL New wound cx 03/10 prelim shows growth B-hemolytic strep grp B Left foot radiographs- negative for soft tissue emphysema and OM of hallux LLE MRI reveals early signs of osteomyelitis to L hallux Wound cleansed with saline and dressed with Santyl and Optifoam Continue IV abx per ID - Zyvox Continue WBAT with forefoot offloading shoe to LLE Pt will need 4-6 wks of abx for treatment of OM in left hallux PICC line ordered, pending placement Podiatry will continue to follow while in house
[2017-03-12 18:50] VITALS: BP 117/80; PULSE 86; TEMP 98.6; O2SAT 98
--- NOTE | 2017-03-12 21:35 | PN ---
DATE: 03/12/2017 SUBJECTIVE: The patient is in bed, in no cute distress. OBJECTIVE: VITAL SIGNS: Temperature is 98, blood pressure is 160/90, respiratory rate is 20, and heart rate is 86. HEENT: Unremarkable. NECK: Supple. LUNGS: Decreased breath sounds. HEART: Normal S1 and S2. ABDOMEN: Soft and nontender. LABORATORY DATA: Reveals the patient has group B beta-hemolytic strep from the toe culture. The blood cultures have no growth. The stool for Clostridium difficile is negative, and review orders reveals the patient is on Zyvox IV. ASSESSMENT AND PLAN: A 51-year-old female who was seen early this morning with a left foot cellulitis, group B streptococcus. MRI consistent with osteomyelitis in a patient with diabetes and hypertension. We will change the p.o. Zyvox and complete therapy in 28 days for osteomyelitis with group B streptococcus. Mike Cotton MD
--- NOTE | 2017-03-12 23:54 | PN ---
DATE: 03/12/2017 SUBJECTIVE: The patient is in bed, in no acute distress. OBJECTIVE: VITAL SIGNS: Temperature is 98, blood pressure is 160/90, respiratory rate of 18. HEENT: Unremarkable. NECK: Supple. LUNGS: Have decreased breath sounds. HEART: Normal S1, S2. ABDOMEN: Soft, nontender. LABORATORY DATA: Reveals a white count of 5.8, hemoglobin of 12, platelets of 146. Chemistries are noted and with a creatinine of 0.9. Urinalysis is noted. ASSESSMENT AND PLAN: This is a 51-year-old female was seen early this morning in 568, bed 1 with a left foot cellulitis with group B Streptococcus with an MRI consistent with osteomyelitis in a diabetic and hypertensive, we will switch to p.o. Zyvox to complete therapy. Case discussed with PMD. Mike Cotton MD
--- NOTE | 2017-03-13 07:01 | DS ---
HISTORY OF PRESENT ILLNESS: The patient is a 51-year-old, seen and examined, lying in bed, seems to be comfortable. No nausea. No vomiting. No diarrhea. No fever. No chills. Eating and tolerating. PHYSICAL EXAMINATION: VITAL SIGNS: She is afebrile, pulse 86, respirations 18, and blood pressure 117/80. LUNGS: Bilateral fair airflow. No rhonchi or crackle. HEART: S1 and S2 audible. ABDOMEN: Soft and nontender. No rebound. No guarding. NEUROLOGIC: The patient is awake, alert, oriented, able to communicate. LABORATORY EXAM: Blood sugar is 146. Her wound culture positive for beta-hemolytic strep group B. ASSESSMENT AND PLAN: 1. Left big toe cellulitis and osteomyelitis. 2. Wno-fyalvjh-cinoeimhw diabetes. 3. Hypertension. 4. Hyperlipidemia. PLAN: We will switch the patient's medication to p.o. Zyvox and once it is arranged, the patient can be discharge later on today. Maribel Sgeundo MD
== END 2017-03-12 20:28 | disposition home or self-care (01) | DRG 580 ==
LOC: ED 23:52 → ERH 03-08 02:05 → 5RNO 03-08 04:07
PROVIDERS: ADMIT Internal Medicine; ATTEND Internal Medicine
PROC: 0JBR3ZZ Excision of Left Foot Subcutaneous Tissue and Fascia, Percutaneous Approach (ICD-10-PCS; principal; 2017-03-10)
DX: L03.032 Cellulitis of left toe (principal); M86.8X7 Other osteomyelitis, ankle and foot; E11.69 Type 2 diabetes mellitus with other specified complication; L03.116 Cellulitis of left lower limb; E11.42 Type 2 diabetes mellitus with diabetic polyneuropathy; E11.51 Type 2 diabetes mellitus with diabetic peripheral angiopathy without gangrene; E11.621 Type 2 diabetes mellitus with foot ulcer; L97.529 Non-pressure chronic ulcer of other part of left foot with unspecified severity; B95.1 Streptococcus, group B, as the cause of diseases classified elsewhere; I10 Essential (primary) hypertension; E78.5 Hyperlipidemia, unspecified; E11.649 Type 2 diabetes mellitus with hypoglycemia without coma; E11.65 Type 2 diabetes mellitus with hyperglycemia; R19.7 Diarrhea, unspecified; Z79.84 Long term (current) use of oral hypoglycemic drugs

== ENCOUNTER 2017-11-10 23:02 | Inpatient (IN) | payer OTHER ==
[2017-11-10 23:18] VITALS: BMI 24.9
[2017-11-11] MEDS ORDERED: Sodium Chloride 0.9% 1,000 ML IV STA (00:23)
--- NOTE | 2017-11-11 00:53 | ED PDOC ---
Arrival/HPI <Cole Hull - Last Filed: 11/11/17 01:17> - General Historian: Patient - History of Present Illness Narrative History of Present Illness (Text): 11/11/17 00:50 52-year-old female with past medical history of diabetes, hypertension, hyperlipidemia, reports that she is here in the hospital sent to the emergency room by her pmd to be admitted due to uncontrolled diabetes, hyperkalemia, hyperlipidemia, and hypertension. Patient states that she had recent blood work done, which showed that she has a potassium of 6.2, hemoglobin A1c of 15.2, and moderate amount of glucose in her urine. Otherwise the patient has no other complaints. Patient states that she is compliant with her diabetes and hypertension medication. Otherwise: (-) headache, (-) dizziness, (-) fever, (-) URI symptoms, (-) SOB, (-) chest pain, (-) N/V/D, (-) abdominal pain, (-) flank pain, (-) dysuria, (-) polyruria, (-) polydipsia. PMD Ryan <Bertha Sparks PA-C - Last Filed: 11/11/17 02:00> - General Chief Complaint: High Blood Pressure Time Seen by Provider: 11/10/17 23:12 Past Medical History - Infectious Disease Hx of Infectious Diseases: None - Tetanus Immunization Tetanus Immunization: Unknown - Cardiac Hx Cardiac Disorders: Yes Hx Hypertension: Yes - Pulmonary Hx Respiratory Disorders: No - Neurological Hx Neurological Disorder: No - HEENT Hx HEENT Disorder: No - Renal Hx Renal Disorder: No - Endocrine/Metabolic Hx Diabetes Mellitus Type 2: Yes - Hematological/Oncological Hx Blood Disorders: No - Integumentary Hx Dermatological Disorder: No - Musculoskeletal/Rheumatological Hx Musculoskeletal Disorders: No Hx Falls: Yes - Gastrointestinal Hx Gastrointestinal Disorders: No Other/Comment: abdominal pain - Genitourinary/Gynecological Hx Genitourinary Disorders: No - Psychiatric Hx Psychophysiologic Disorder: No Hx Substance Use: No - Surgical History Other/Comment: notes from prior visit/triage: breast reduction - Anesthesia Hx Anesthesia: Yes Hx Anesthesia Reactions: No Hx Malignant Hyperthermia: No - Suicidal Assessment Feels Threatened In Home Enviroment: No <Bertha Sparks PA-C - Last Filed: 11/11/17 02:00> Family/Social History Family/Social History: Diabetes Smoking Status: Never Smoked Hx Alcohol Use: No Hx Substance Use: No Hx Substance Use Treatment: No <Bertha Sparks PA-C - Last Filed: 11/11/17 02:00> Allergies/Home Meds <Cole Hull - Last Filed: 11/11/17 01:17> <Bertha Sparks PA-C - Last Filed: 11/11/17 02:00> Allergies/Adverse Reactions: Allergies piperacillin [From Zosyn] Allergy (Verified 03/08/17 08:18) RASH tazobactam [From Zosyn] Allergy (Verified 03/08/17 08:18) RASH Home Medications: Home Meds Medication Instructions Recorded Confirmed Glyburide/Metformin HCl 1 tab PO BID 11/11/12 08/23/16 [Glyburide-Metformin 5-500 mg] Enalapril Maleate [Vasotec] 20 mg PO DAILY 03/13/15 08/23/16 Review of Systems - Review of Systems Constitutional: absent: Fatigue, Fevers Cardiovascular: absent: Chest Pain, Palpitations Gastrointestinal: absent: Abdominal Pain, Diarrhea, Vomiting Genitourinary Female: Frequency. absent: Dysuria, Hematuria Musculoskeletal: absent: Arthralgias, Back Pain, Neck Pain Skin: absent: Rash, Pruritis, Skin Lesions Neurological: absent: Headache, Dizziness <Bertha Sparks PA-C - Last Filed: 11/11/17 02:00> Physical Exam Vital Signs Temp Pulse Resp BP Pulse Ox 11/10/17 23:10 98.2 F 90 16 147/89 97 <Cole Hull - Last Filed: 11/11/17 01:17> Vital Signs Temp Pulse Resp BP Pulse Ox 11/10/17 23:10 98.2 F 90 16 147/89 97 Temperature: Afebrile Blood Pressure: Normal Pulse: Regular Respiratory Rate: Normal Appearance: Positive for: Well-Appearing, Non-Toxic, Comfortable Pain Distress: None Mental Status: Positive for: Alert and Oriented X 3 - Systems Exam Head: Present: Atraumatic, Normocephalic Pupils: Present: PERRL Extroacular Muscles: Present: EOMI Conjunctiva: Present: Normal Mouth: Present: Moist Mucous Membranes Neck: Present: Normal Range of Motion. No: Meningeal Signs, Lymphadenopathy Respiratory/Chest: Present: Clear to Auscultation, Good Air Exchange. No: Respiratory Distress, Accessory Muscle Use Cardiovascular: Present: Regular Rate and Rhythm, Normal S1, S2. No: Murmurs Abdomen: No: Tenderness, Distention, Peritoneal Signs Back: Present: Normal Inspection. No: CVA Tenderness, Midline Tenderness Upper Extremity: Present: Normal Inspection, Normal ROM, NORMAL PULSES. No: Cyanosis, Edema Lower Extremity: Present: Normal Inspection, NORMAL PULSES, Normal ROM. No: Edema Neurological: Present: GCS=15, CN II-XII Intact, Speech Normal, Motor Func Grossly Intact, Normal Sensory Function Skin: Present: Warm, Dry, Normal Color. No: Rashes Psychiatric: Present: Alert, Oriented x 3, Normal Insight, Normal Concentration <Bertha Sparks PA-C - Last Filed: 11/11/17 02:00> Medical Decision Making - RAD Interpretation Radiology Orders: 11/11/17 00:21 CHEST TWO VIEWS (PA/LAT) [RAD] Stat - Medication Orders Current Medication Orders: Sodium Chloride (Sodium Chloride 0.9%) 1,000 mls @ 1,000 mls/hr IV .Q1H STA Stop: 11/11/17 01:22 <Cole Hull - Last Filed: 11/11/17 01:17> ED Course and Treatment: 11/11/17 00:54 Plan: -- Labs -- IV fluids -- Urinalysis -- EKG -- CXR -- Reassess and disposition -- FS FS 368 EKG: NSR at 83 bpm, (-) acute ST changes, as read by GEETHA. CXR : NAD, as read by GEETHA Labs reviewed : glucose 402, normal anion gap, K 4.6 Patient given 1L of BS bolus. On re-evaluation, patient is resting comfortably in bed in no acute distress. Diagnostic results d/w the patient. Patient states that Dr. Segundo has admitted her in the past and is requesting for her to be the admitting doctor if needed. Case d/w Dr. Segundo, agrees with plan for observation. Request Dr. Valdez for endocrine consult. - RAD Interpretation Radiology Orders: 11/11/17 00:21 CHEST TWO VIEWS (PA/LAT) [RAD] Stat - Medication Orders Current Medication Orders: Sodium Chloride (Sodium Chloride 0.9%) 1,000 mls @ 1,000 mls/hr IV .Q1H STA Stop: 11/11/17 01:22 <Bertha Sparks PA-C - Last Filed: 11/11/17 02:00> - PA / FILM TECHNICIAN / Resident Statement SAM has reviewed & agrees with the documentation as recorded. SAM has examined the patient and agrees with the treatment plan. <Cole Hull - Last Filed: 11/11/17 01:17> - PA / FILM TECHNICIAN / Resident Statement SAM has reviewed & agrees with the documentation as recorded. <Bertha Sparks PA-C - Last Filed: 11/11/17 02:00> Disposition/Present on Arrival <Cole Hull - Last Filed: 11/11/17 01:17> - Present on Arrival Any Indicators Present on Arrival: Yes History of DVT/PE: No History of Uncontrolled Diabetes: Yes Urinary Catheter: No History of Decub. Ulcer: No History Surgical Site Infection Following: None - Disposition Have Diagnosis and Disposition been Completed?: Yes Disposition Time: 02:00 Patient Plan: Observation <Bertha Sparks PA-C - Last Filed: 11/11/17 02:00> - Disposition Diagnosis: Uncontrolled diabetes mellitus Disposition: HOSPITALIZED Patient Problems: Current Active Problems Problem Status Onset Uncontrolled diabetes mellitus Acute Condition: STABLE Referrals: Maribel Segundo MD [Primary Care Provider] - Follow up with primary Forms: [employer] (Fijian)
[2017-11-11 01:11] LABS: BASO # 0.01 K/mm3 (0.0-2.0); BASO % 0.2 % (0.0-3.0); EOS % 0.5 % (1.5-5.0); GRAN # 1.7 (1.4-6.5); GRAN % 38.7 % (50.0-68.0); HEMOGLOBIN 12.5 g/dL (12.0-16.0); LYMPH # 2.4 (1.2-3.4); LYMPH % 53.5 % (22.0-35.0); MEAN CELL VOLUME 83.8 fl (80.0-105.0); MEAN CORPUSCULAR HEMOGLOBIN 29.3 pg (25.0-35.0); MEAN CORPUSCULAR HGB CONC 34.9 g/dl (31.0-37.0); MEAN PLATELET VOLUME 10.8 fl (7.0-11.0); MONO # 0.3 (0.1-0.6); MONO % 7.1 % (1.0-6.0); RBC 4.27 10^6/uL (3.5-6.1); WHITE BLOOD COUNT 4.4 10^3/ul (4.5-11.0)
[2017-11-11 01:30] LABS: ALB/GLOB RATIO 1.2 (1.1-1.8); ALBUMIN 3.9 g/dL (3.0-4.8); ALT/SGPT 19 U/L (7-56); AST/SGOT 21 U/L (14-36); BLOOD UREA NITROGEN 30 mg/dL (7-21); CALCIUM 9.5 mg/dL (8.4-10.5); GFR NON-AFRICAN AMERICAN > 60
--- NOTE | 2017-11-11 07:56 | RAD ---
Date of service: 11/11/2017 HISTORY: for admission COMPARISON: 04/03/2016 TECHNIQUE: Chest PA and lateral FINDINGS: LUNGS: No active pulmonary disease. Minimal linear atelectasis of both lung bases PLEURA: No significant pleural effusion identified. No pneumothorax apparent. CARDIOVASCULAR: Normal. OSSEOUS STRUCTURES: No significant abnormalities. VISUALIZED UPPER ABDOMEN: Normal. OTHER FINDINGS: None. IMPRESSION: No active disease.
[2017-11-11] MEDS ORDERED: Insulin Regular 1 UNITS/0.01 ML ML SC STA (08:40)
--- NOTE | 2017-11-11 09:31 | CARD ---
APPROVED REPORT Date of service: 11/11/2017 EKG Measurement Heart [id number] NM [id number] <Conclusion> Normal sinus rhythm Normal ECG
[2017-11-11] MEDS: Insulin Reg-MEDIUM-Coverage SC SCH ×3 (11:46→21:26)
--- NOTE | 2017-11-12 00:46 | HP ---
HISTORY OF PRESENT ILLNESS: The patient is 52 years old, known to me from office practice, very noncompliant, was recently evaluated in office. Her blood sugar was found to be high. I advised her to add on other medication to her metformin. She states she risks side effect and all other medications have a lot of side effects. She refused to have any new medication to be introduced. The patient states she was not feeling well. She want to see Dr. Davis on Friday who told her that her potassium is high and her blood sugar is high and he advised her to come to emergency room for further evaluation, so the patient came in because of generalized weakness and bilateral foot cramps. The patient was admitted in February because of her right big toe cellulitis. She was treated 4 to 6 weeks because of osteomyelitis. PAST MEDICAL HISTORY: Significant for; 1. Hypertension. 2. Zug-mvqkteh-ggcayhbyl diabetes. 3. Peripheral neuropathy. ALLERGIES: SHE IS ALLERGIC TO PIPERACILLIN/TAZOBACTAM. SOCIAL HISTORY: She works. Denies smoking or drinking. REVIEW OF SYSTEMS: Significant for generalized weakness only. PHYSICAL EXAMINATION: GENERAL: The patient is awake, alert, oriented, and communicative. VITAL SIGNS: The patient is afebrile, pulse 80, respirations 20, blood pressure 139/86. LUNGS: Bilateral good airflow. No rhonchi or crackle. HEART: S1 and S2 audible. ABDOMEN: Soft. Nontender. No rebound. No guarding. NEUROLOGICAL: She is awake, alert, oriented, able to communicate. LABORATORY EXAM: WBC 4.4, hemoglobin 12.5, hematocrit 35.8, platelets 127. Chemistry: Sodium 131, potassium 4.6, chloride 92, CO2 of 28. BUN 30, creatinine 0.8. Blood sugar of . EKG is with normal sinus rhythm. ASSESSMENT: 1. Uncontrolled diabetes. 2. Electrolyte imbalance. 3. Hyponatremia. 4. History of hypertension. PLAN: We will continue the patient on IV . We will add glimepiride 4 mg twice a day. We will feed her and monitor her blood sugar. We will follow up the patient in a.m. Awaiting diabetic education. Maribel Segundo MD
[2017-11-12 06:26] LABS: LDL CHOLESTEROL 40 mg/dL (0-129)
[2017-11-12 06:30] LABS: FREE T4 0.85 ng/dL (0.78-2.19)
[2017-11-12 07:21] LABS: ALB/GLOB RATIO 1.1 (1.1-1.8); ALBUMIN 3.6 g/dL (3.0-4.8); ALT/SGPT 24 U/L (7-56); AST/SGOT 19 U/L (14-36); BLOOD UREA NITROGEN 22 mg/dL (7-21); CALCIUM 9.5 mg/dL (8.4-10.5); GFR NON-AFRICAN AMERICAN > 60; HDL CHOLESTEROL 33 mg/dL (29-60)
[2017-11-12] MEDS: Insulin Reg-LOW-Coverage SC SCH ×4 (08:01→23:01)
--- NOTE | 2017-11-12 10:16 | CON ---
DATE: 11/12/2017 ENDOCRINOLOGY CONSULT LOCATION: In room 363. HISTORY OF PRESENT ILLNESS: This is a 52-year-old female with known history of type 2 diabetes, on combination of oral hypoglycemic therapy, presenting here with marked hyperglycemic accelerations and was actually sent by her primary physician with an A1c of 15.2% as noted. Moreover, she also has concomitant marked hyperkalemia and dehydration and was thus referred for immediate admission by her primary physician and is being referred now for diabetic evaluation and management. PAST MEDICAL HISTORY: As mentioned above, history of type 2 diabetes, currently on a combination of glyburide/metformin given as 5/500 b.i.d. as given. She is also taking occasionally 1000 mg of metformin with once daily as given. History of hypertension and dyslipidemia. FAMILY HISTORY: Positive for diabetes and hypertension. SOCIAL HISTORY: The patient has supportive family. No known substance use. REVIEW OF SYSTEMS: As mentioned above. Admits to generalized body weakness with episodic bouts of dizziness and lightheadedness and hypersomnolence as noted. Also admits to visual blurring with bifrontal headaches. No chest pains or palpitations or PNDs. Her oral intake has been variable with nausea, dyspepsia and vague upper abdominal pains. Also admits to lower extremity paresthesias, especially nocturnally. PHYSICAL EXAMINATION: GENERAL: This is an average-built female, in no apparent distress. VITAL SIGNS: Blood pressure of 140/80; pulse of 70 beats per minute, regular; temperature 98; respirations 20; height is 5 feet 4 inches. Weight is 145 pounds. HEENT: Head normocephalic. Eyes anicteric with pink conjunctivae. Funduscopy not possible at this time. Ears, nose and throat otherwise normal. NECK: Supple. Thyroid gland is normal in size. No carotid bruits or cervical adenopathy. CARDIOPULMONARY: Some adynamic precordium. S1, S2 is rapid and regular. LUNGS: Clear to auscultation. ABDOMEN: Flat, soft with positive bowel sounds. EXTREMITIES: No peripheral edema. Pulses are +2 bilaterally. LABORATORY DATA: Her chemistries showed a BUN of 22, sodium 135, potassium 4.5, chloride 101, CO2 of 29, glucose 227 and creatinine 0.7. ASSESSMENT: This is a 52-year-old female with uncontrolled and decompensated type 2 insulin-requiring diabetes, clearly with suboptimal metabolic control and insulin-requiring at least for basal insulin to improve her fasting glycemic profile in the mornings. PLAN OF MANAGEMENT: We will concur with the triple oral hypoglycemic therapy as given with Januvia at 100 mg daily and metformin as 1 g b.i.d. to start today as ordered. She was also started on Amaryl given as 4 mg b.i.d. before meals. We will add, however, basal insulin with Levemir given as 20 units subcu at bedtime daily to start tonight. We will modify the coverage scale to obviate hypoglycemia and detailed orders have been given. We will initiate diabetic education to include insulin self-administration techniques at this time. We will follow and advise accordingly. Sima Valdez MD
--- NOTE | 2017-11-12 16:22 | US ---
PROCEDURE: Lower extremity NOLBERTO exam HISTORY: Peripheral vascular disease with pain and claudication. Diabetes PHYSICIAN(S): Yosi Green MD. FINDINGS: The resting NOLBERTO's are normal: right, 1.20and left, 1.09. The brachial systolic pressures are symmetric. The high thigh pressures are noncompressible. The high thigh PVR waveforms are normal and symmetric The calf PVR waveforms augment normally. No significant gradients are noted across the thighs. The ankle and metatarsal waveforms are relatively normal and symmetric. No significant pressure gradients are noted across the lower legs. IMPRESSION: 1. Normal NOLBERTO and PVR examination at rest.
[2017-11-12] MEDS ORDERED: Insulin Detemir 100 units/ml Vial (Levemir) SC SCH (22:00)
--- NOTE | 2017-11-13 01:59 | DS ---
HISTORY OF PRESENT ILLNESS: The patient is 52 years old, seen and examined. She came in since she was not feeling well. She was seen by her PMD, who checked her blood sugar and potassium was high and she was advised to come to emergency room for further evaluation, had been on IV fluids. Doing a little better. Still has bilateral leg cramps and pain on walking. PHYSICAL EXAMINATION: GENERAL: She is awake, alert, oriented, communicative. VITAL SIGNS: She is afebrile, pulse 77, respirations 18, blood pressure 129/79. LUNGS: Bilateral good airflow. No rhonchi or crackle. HEART: S1 and S2 audible. ABDOMEN: Soft. Nontender. No rebound. No guarding. NEUROLOGICAL: The patient is awake and alert, able to communicate. Moves all extremity. EXTREMITIES: Bilateral leg, no edema. LABORATORY EXAM: Blood sugar is 325. ASSESSMENT: 1. Uncontrolled diabetes. 2. Hypertension. 3. Hyperlipidemia. 4. Noninsulin-dependent diabetes. I advised the patient that we have to give her basal insulin. The patient is adamant. She does not want to inject herself. She would rather try to get it controlled with her pills. I will order for arterial Doppler. After it is done and result is available, she can be discharged later on today on metformin 1000 twice a day, glimepiride 4 mg twice a day and Januvia 100 mg. Maribel Segundo MD
[2017-11-13 07:16] LABS: ALB/GLOB RATIO 1.2 (1.1-1.8); ALBUMIN 3.7 g/dL (3.0-4.8); ALT/SGPT 18 U/L (7-56); AST/SGOT 18 U/L (14-36); BLOOD UREA NITROGEN 29 mg/dL (7-21); CALCIUM 9.6 mg/dL (8.4-10.5); GFR NON-AFRICAN AMERICAN > 60; HDL CHOLESTEROL 32 mg/dL (29-60)
[2017-11-13 07:25] LABS: LDL CHOLESTEROL 45 mg/dL (0-129)
[2017-11-13] MEDS: Insulin Reg-LOW-Coverage SC SCH ×3 (08:30→17:03)
--- NOTE | 2017-11-13 13:06 | DS ---
HISTORY OF PRESENT ILLNESS: The patient is 52 years old, who was not feeling well, went to see Dr. Davis, who checked her blood sugar, was found to have hyperkalemia and very high blood sugar. She was advised to come to emergency room. She was found to have high blood sugar of 402 in the ER. The patient was admitted, IV fluid started and was started on coverage and p.o. hypoglycemic. The patient does not like to take medications. I had advised her to add some other medication other than metformin. She states all other medications have so many side effects, so she preferred only to take metformin. She was prescribed on multiple occasions medicine other than metformin, but she never took; however, I had a long discussion, she agreed to try other medication. Did not like the effect of Janumet; however, she likes Amaryl. GENERAL: On examination today, she seems to be doing better. No nausea or vomiting. No diarrhea. VITAL SIGNS: She is afebrile, pulse 80, respirations 19, blood pressure 110/80. LUNGS: Bilateral fair airflow. No rhonchi or crackle. HEART: S1 and S2 audible. ABDOMEN: Soft. Nontender. No rebound. No guarding. NEUROLOGICAL: The patient is awake, alert, oriented, communicative. LABORATORY EXAM: Her bilateral leg Doppler is negative for any peripheral vascular disease. Her total cholesterol is 236, triglyceride more than 525. ASSESSMENT: 1. Uncontrolled diabetes. 2. Hyperlipidemia. 3. Noncompliance. PLAN: The patient is going to be discharged home on metformin 1000 twice a day, glimepiride 4 mg twice a day. She will be given Oseni 15/25 daily. I will follow up in the office. Maribel Segundo MD
--- NOTE | 2017-11-13 13:19 | PN ---
DATE: 11/13/2017 ENDOCRINOLOGY FOLLOWUP NOTE LOCATION: Room 363. SUBJECTIVE: This is a 52-year-old female with recent uncontrolled type 2 insulin-requiring diabetes presenting here with marked hyperglycemic accelerations with clearly suboptimal metabolic control on just triple oral hypoglycemic drug therapy as given to the patient. Her glycemic levels are fluctuating, but much improved overnight after the initiation of basal insulin as given. Her glucose values have ranged from 182-236 and 297 mg/dL. Her latest chemistry showed a BUN of 29, sodium 136, potassium 4.4, chloride 101, CO2 of 27, glucose 161, creatinine is 0.9. So at this time, we will continue to modify basal insulin regimen given Levemir at 20 units subcu at bedtime daily as ordered. We will observe her glycemic fluctuations with aforementioned initiation of basal insulin therapy at this time. We will consider the addition of a premixed insulin regimen at dinner time. This has complicated the patient's life as she depends on her family for assistance. In fact, she cannot self administer her own insulin at this time. We will continue the Levemir as mentioned to 20 units subcu at bedtime daily as given. We will continue the triple oral hypoglycemic drug therapy as ordered with Januvia given at 100 mg daily with metformin at 850 mg b.i.d. and Januvia given at 100 mg once daily as ordered. We will obtain serial chemistries and supplement accordingly as needed. We will follow. Sima Valdez MD
[2017-11-13 17:00] VITALS: BP 102/60; PULSE 84; RESP 20; TEMP 98; O2SAT 96
== END 2017-11-13 20:06 | disposition home or self-care (01) | DRG 638 ==
LOC: ED 23:02 → ERH 11-11 01:57 → 3RNO 11-11 04:56 → OBSVTOIN 11-12 15:24
PROVIDERS: ADMIT Internal Medicine; ATTEND Internal Medicine
DX: E11.65 Type 2 diabetes mellitus with hyperglycemia (principal); E87.1 Hypo-osmolality and hyponatremia; E86.0 Dehydration; I10 Essential (primary) hypertension; E78.5 Hyperlipidemia, unspecified; E87.5 Hyperkalemia; Z88.1 Allergy status to other antibiotic agents; Z91.19 Patient's noncompliance with other medical treatment and regimen; Z79.84 Long term (current) use of oral hypoglycemic drugs